=== PATIENT | female | born 1965 | race Caucasian/White ===

== ENCOUNTER 2016-02-25 13:23 | Emergency (ER) | payer OTHER ==
[2016-02-25 16:13] LABS: Hematocrit 47 % (35-47); Hemoglobin 15.8 g/dl (12.0-16.0); Mean Corpuscular HGB Conc 34 g/dl (31-36); Mean Corpuscular Hemoglobin 31 pg (27-31); Mean Corpuscular Volume 91 fL (80-97); Mean Platelet Volume 8 um3 (7.4-10.4); Red Blood Count 5.17 10^6/ul (4.0-5.4); Red Cell Distribution Width 13 % (10.5-15); White Blood Count 10.1 10^3/ul (3.5-10.8)
[2016-02-25 16:31] LABS: Albumin 4.3 g/dL (3.2-5.2); BUN/Creatinine Ratio 17.5 (8-20); Calcium 9.6 mg/dL (8.6-10.3); EGFR African American 143.2 (>60); EGFR Non-African American 111.4 (>60); Globulin 2.9 g/dL (2-4); Total Bilirubin 0.4 mg/dL (0.2-1.0); Total Protein 7.2 g/dL (6.4-8.9)
[2016-02-25 17:25] VITALS: BP 150/89
--- NOTE | 2016-02-25 21:35 | ED ---
Arcadio Ramos Erika, scribed for Terry Burk MD on 02/25/16 at 1549 . Lower Extremity - HPI Summary HPI Summary: Patient is a 50-year-old female presenting to the ED with a CC of right lower extremity pain starting a few days ago. She denies known trauma, and states she has seen no bruises. Pt reports that pain starts in the anterior right thigh and radiates down to the ankle. Pain is not aggravated by palpation. She denies recent fever, chest pain, SOB, vomiting, or other illness. Hx DDD, gestational diabetes. FHx cardiac disease. Pt reports she works for a [employer], and moves around at work. - History of Current Complaint Chief Complaint: EDSoftTissueLowExtr Stated Complaint: RT LEG PAIN Time Seen by Provider: 02/25/16 15:27 Hx Obtained From: Patient Hx Last Menstrual Period: partial hyster in past Onset/Duration: Still Present Severity Initially: Mild Severity Currently: Moderate Pain Intensity: 7 Pain Scale Used: 0-10 Numeric Timing: Constant Location: Is Discrete @ - RLE Associated Signs And Symptoms: Positive: Negative - Allergies/Home Medications Allergies/Adverse Reactions: Allergies Allergy/AdvReac Type Severity Reaction Status Date / Time Codeine Allergy Intermediate severe Verified 05/25/15 18:44 vomiting Hydrocodone Allergy Intermediate severe Verified 05/25/15 18:44 vomiting Acetaminophen Allergy severe Verified 05/25/15 18:44 [From Oxycodone vomiting W/Acetaminophen] Cephalexin [From Keflex] Allergy SEVERE Verified 05/25/15 18:44 VOMITING Oxycodone Allergy severe Verified 05/25/15 18:44 [From Oxycodone vomiting W/Acetaminophen] PAIN MEDS AdvReac Intermediate Vomiting Uncoded 05/25/15 18:44 PMH/Surg Hx/FS Hx/Imm Hx Endocrine/Hematology History: Denies: Hx Anticoagulant Therapy, Hx Bone Marrow Disease, Hx Diabetes, Hx Sickle Cell Disease, Hx Thyroid Disease, Hx Anemia Cardiovascular History: Reports: Hx Angina, Hx Coronary Artery Disease - in 6 months., Hx Hypertension Denies: Hx Cardiomegaly, Hx Congestive Heart Failure - h/o Hypertension,bp stable. ao longer taking htn med. to be e reevaluated, Hx Pacemaker/ICD, Hx Peripheral Vascular Disease, Hx Rheumatic Fever, Hx Valvular Heart Disease, Other Cardiovascular Problems/Disorders Respiratory History: Denies: Hx Asthma, Hx Chronic Obstructive Pulmonary Disease (COPD), Hx Pulmonary Edema, Hx Pulmonary Embolism, Hx Sleep Apnea, Other Respiratory Problems/Disorders - SMOKER, ON CHANTIX GI History: Denies: Hx Cirrhosis, Hx Crohn's Disease, Hx Gastroesophageal Reflux Disease , Hx Hiatal Hernia, Hx Irritable Bowel, Hx Jaundice, Hx Ulcer, Other GI Disorders History: Reports: Other Problems/Disorders - Pain from uterine fibroids Denies: Hx Kidney Infection, Hx Kidney Stones Musculoskeletal History: Reports: Other Musculoskeletal History - DDD Denies: Hx Arthritis, Hx Bursitis, Hx Tendonitis Sensory History: Reports: Hx Contacts or Glasses Denies: Hx Cataracts, Hx Glaucoma, Hx Hearing Aid Opthamlomology History: Reports: Hx Contacts or Glasses Denies: Hx Cataracts, Hx Glaucoma Neurological History: Denies: Hx Headaches, Hx Migraine, Hx Seizures, Other Neuro Impairments/ Disorders Psychiatric History: Reports: Hx Depression - diag. with depression. treatment Lexapro Denies: Hx Anxiety - Cancer History Hx Chemotherapy: No Hx Radiation Therapy: No - Surgical History Surgery Procedure, Year, and Place: partial HYSTERECTOMY 03/19/12; TUBAL LIGATION Hx Anesthesia Reactions: Yes - extremely cold after anesthesia - Immunization History Date of Tetanus Vaccine: UNK Date of Influenza Vaccine: None this year Infectious Disease History: Denies: Hx Clostridium Difficile, Hx Hepatitis, Hx Human Immunodeficiency Virus (HIV), Hx of Known/Suspected MRSA, Hx Shingles, Hx Tuberculosis, Traveled Outside the [place] in Last 30 Days - Family History Known Family History: Positive: Cardiac Disease - Social History Alcohol Use: None Hx Substance Use: No Substance Use Type: Reports: None Hx Tobacco Use: Yes Smoking Status (MU): Current Every Day Smoker Type: Cigarettes Amount Used/How Often: 1/2 ppd Have You Smoked in the Last Year: Yes Review of Systems Negative: Fever Negative: Chest Pain Negative: Shortness Of Breath Negative: Vomiting Positive: Myalgia - RLE pain Negative: Bruising All Other Systems Reviewed And Are Negative: Yes Physical Exam - Summary Physical Exam Summary: Constitutional: Comfortable, pleasant, alert HEENT: moist mucosa, MARISSA Neck: Soft, supple, no adenopathy, no edema Heart: S1, S2, HR 101 bpm, no murmurs, rubs, or gallops Lungs: clear, breathing comfortably, no wheezes, no rales Abdomen: Soft, flat, non-tender. Extremities: No edema, calves non-tender. RLE: No swelling, no redness, no ulcerations, no right inguinal adenopathy, femoral pulse 2+, popliteal pulse 2+ , DP pulse 2. No muscle tenderness or atrophy. Negative Pantera's. No calf tenderness. No pain with hip flexion or lateral abduction. Full ROM at the hip and knee. Strength intact. Negative straight leg raise. Spine: There is some lower spinal percussion tenderness Neurological: A&Ox3 Psychological: logical, coherent Triage Information Reviewed: Yes Vital Signs On Initial Exam: Initial Vitals Temp Pulse Resp BP Pulse Ox 98.2 F 113 18 180/130 99 02/25/16 14:07 02/25/16 14:07 02/25/16 14:07 02/25/16 14:07 02/25/16 14:07 Vital Signs Reviewed: Yes Diagnostics - Vital Signs Vital Signs Temp Pulse Resp BP Pulse Ox 02/25/16 14:07 98.2 F 113 18 180/130 99 - Laboratory Lab Results: Lab Results 02/25/16 02/25/16 02/25/16 Range/Units 16:06 16:06 16:06 WBC 10.1 (3.5-10.8) 10^3/ul RBC 5.17 (4.0-5.4) 10^6/ul Hgb 15.8 (12.0-16.0) g/dl Hct 47 (35-47) % MCV 91 (80-97) fL MCH 31 (27-31) pg MCHC 34 (31-36) g/dl RDW 13 (10.5-15) % Plt Count 232 (150-450) 10^3/ul MPV 8 (7.4-10.4) um3 Neut % (Auto) 62.7 (38-83) % Lymph % (Auto) 30.5 (25-47) % [place] % (Auto) 5.3 (1-9) % Eos % (Auto) 1.3 (0-6) % Baso % (Auto) 0.2 (0-2) % Absolute Neuts (auto) 6.4 (1.5-7.7) 10^3/ul Absolute Lymphs (auto) 3.1 (1.0-4.8) 10^3/ul Absolute Monos (auto) 0.5 (0-0.8) 10^3/ul Absolute Eos (auto) 0.1 (0-0.6) 10^3/ul Absolute Basos (auto) 0 (0-0.2) 10^3/ul Absolute Nucleated RBC 0.01 10^3/ul Nucleated RBC % 0.1 D-Dimer, Quantitative (Less Than 230) ng/mL Sodium 137 (133-145) mmol/L Potassium 4.0 (3.5-5.0) mmol/L Chloride 104 (101-111) mmol/L Carbon Dioxide 26 (22-32) mmol/L Anion Gap 7 (2-11) mmol/L BUN 10 (6-24) mg/dL Creatinine 0.57 (0.51-0.95) mg/dL Est GFR ( Amer) 143.2 (>60) Est GFR (Non-Af Amer) 111.4 (>60) BUN/Creatinine Ratio 17.5 (8-20) Glucose 103 H (70-100) mg/dL Lactic Acid 1.0 (0.5-2.0) mmol/L Calcium 9.6 (8.6-10.3) mg/dL Total Bilirubin 0.40 (0.2-1.0) mg/dL AST 17 (13-39) U/L ALT 18 (7-52) U/L Alkaline Phosphatase 102 (34-104) U/L Total Protein 7.2 (6.4-8.9) g/dL Albumin 4.3 (3.2-5.2) g/dL Globulin 2.9 (2-4) g/dL Albumin/Globulin Ratio 1.5 (1-3) 02/25/16 Range/Units 16:06 WBC (3.5-10.8) 10^3/ul RBC (4.0-5.4) 10^6/ul Hgb (12.0-16.0) g/dl Hct (35-47) % MCV (80-97) fL MCH (27-31) pg MCHC (31-36) g/dl RDW (10.5-15) % Plt Count (150-450) 10^3/ul MPV (7.4-10.4) um3 Neut % (Auto) (38-83) % Lymph % (Auto) (25-47) % [place] % (Auto) (1-9) % Eos % (Auto) (0-6) % Baso % (Auto) (0-2) % Absolute Neuts (auto) (1.5-7.7) 10^3/ul Absolute Lymphs (auto) (1.0-4.8) 10^3/ul Absolute Monos (auto) (0-0.8) 10^3/ul Absolute Eos (auto) (0-0.6) 10^3/ul Absolute Basos (auto) (0-0.2) 10^3/ul Absolute Nucleated RBC 10^3/ul Nucleated RBC % D-Dimer, Quantitative < 200 (Less Than 230) ng/mL Sodium (133-145) mmol/L Potassium (3.5-5.0) mmol/L Chloride (101-111) mmol/L Carbon Dioxide (22-32) mmol/L Anion Gap (2-11) mmol/L BUN (6-24) mg/dL Creatinine (0.51-0.95) mg/dL Est GFR ( Amer) (>60) Est GFR (Non-Af Amer) (>60) BUN/Creatinine Ratio (8-20) Glucose (70-100) mg/dL Lactic Acid (0.5-2.0) mmol/L Calcium (8.6-10.3) mg/dL Total Bilirubin (0.2-1.0) mg/dL AST (13-39) U/L ALT (7-52) U/L Alkaline Phosphatase (34-104) U/L Total Protein (6.4-8.9) g/dL Albumin (3.2-5.2) g/dL Globulin (2-4) g/dL Albumin/Globulin Ratio (1-3) Result Diagrams: 02/25/16 16:06 02/25/16 16:06 Lab Statement: Any lab studies that have been ordered have been reviewed, and results considered in the medical decision making process. Re-Evaluation - Re-Evaluation First Eval Re-Evaluation Time: 17:19 Comment: Discussed lab results and findings and discharge plan Lower Extremity Course/Dx - Course Assessment/Plan: She presents with right lateral thigh pain radiating down into the knee of unknown etiology. Her exam does not show anything concerning for DVT , vascular event, infection, severe strain, or significant neurological deficit. One possibility is it might be radiating down from her back, but I do not see any signs of disc herniation, radiculopathy, or cord compression. HR was elevated on arrival, but there are no Sx or signs or work up consistent with infection. I believe she is safe for discharge. - Diagnoses Differential Diagnosis/HQI/PQRI: Positive: Arthritis, Burn Localized, Bursitis, Cellulitis, Compartment Syndrome, Dislocation, Infection, Osteomyelitis, Phlebitis, Puncture Wound, Sciatica Provider Diagnoses: Right leg pain Discharge - Discharge Plan Condition: Good Disposition: HOME Patient Education Materials: Leg Pain (ED) Referrals: Deepti Jenkins MD [Primary Care Provider] - The documentation as recorded by the Arcadio marcus Erika accurately reflects the service I personally performed and the decisions made by me, Terry Burk MD.
== END 2016-02-25 17:25 | disposition home or self-care (01) ==
LOC: ED 13:23
DX: M79.604 Pain in right leg (principal); F17.210 Nicotine dependence, cigarettes, uncomplicated; Z88.6 Allergy status to analgesic agent; Z88.1 Allergy status to other antibiotic agents
CPT/HCPCS: 36415; 80053; 83605; 85025; 85379; 99282

== ENCOUNTER 2016-03-02 22:30 | Emergency (ER) | payer OTHER ==
[2016-03-03 00:17] VITALS: BP 153/103
[2016-03-03] MEDS ORDERED: Ketorolac INJ* 60 MG/2 ML VIAL IM ONE (00:38)
[2016-03-03] MEDS ORDERED: Orphenadrine Citrate IV* 30 MG/ML 2 ML VIAL IM ONE (00:38)
--- NOTE | 2016-03-03 02:16 | ED ---
Una Ramos Matthew, scribed for Valentin Morgan on 03/03/16 at 0059 . Lower Extremity - HPI Summary HPI Summary: A 50 y/o female presents to the ED with right leg pain since 2 weeks ago. She describes numbness in the right leg from her hip to her knee, and then pain from the knee to the ankle. The pain is rated 10/10 in severity. Associated symptoms include lower back pain. She denies any trauma. The patient was seen in the ED on 02/25/16 and the studies were inconclusive at that time. She then follow-up with her PCP who believes she may have a pinched nerve in the lower back. At that time, she was prescribed prednisone; but had a bad reaction to the medication and was advised to switch to Motrin. However, she states that she has not been having relief with Motrin. - History of Current Complaint Chief Complaint: EDExtremitJudeower Stated Complaint: LEG INJURY Time Seen by Provider: 03/03/16 00:22 Hx Obtained From: Patient Hx Last Menstrual Period: partial hyster in past Onset of Pain: Days Onset/Duration: Still Present Severity Initially: Moderate Severity Currently: Moderate Pain Intensity: 10 Pain Scale Used: 0-10 Numeric Timing: Constant Location: Is Discrete @ - right leg Associated Signs And Symptoms: Positive: Negative Alleviating Factor(s): Nothing Able to Bear Weight: Yes - Allergies/Home Medications Allergies/Adverse Reactions: Allergies Allergy/AdvReac Type Severity Reaction Status Date / Time Codeine Allergy Intermediate severe Verified 05/25/15 18:44 vomiting Hydrocodone Allergy Intermediate severe Verified 05/25/15 18:44 vomiting Acetaminophen Allergy severe Verified 05/25/15 18:44 [From Oxycodone vomiting W/Acetaminophen] Cephalexin [From Keflex] Allergy SEVERE Verified 05/25/15 18:44 VOMITING Oxycodone Allergy severe Verified 05/25/15 18:44 [From Oxycodone vomiting W/Acetaminophen] PAIN MEDS AdvReac Intermediate Vomiting Uncoded 05/25/15 18:44 PMH/Surg Hx/FS Hx/Imm Hx Endocrine/Hematology History: Denies: Hx Anticoagulant Therapy, Hx Bone Marrow Disease, Hx Diabetes, Hx Sickle Cell Disease, Hx Thyroid Disease, Hx Anemia Cardiovascular History: Reports: Hx Angina, Hx Coronary Artery Disease - in 6 months., Hx Hypertension Denies: Hx Cardiomegaly, Hx Congestive Heart Failure - h/o Hypertension,bp stable. ao longer taking htn med. to be e reevaluated, Hx Pacemaker/ICD, Hx Peripheral Vascular Disease, Hx Rheumatic Fever, Hx Valvular Heart Disease, Other Cardiovascular Problems/Disorders Respiratory History: Denies: Hx Asthma, Hx Chronic Obstructive Pulmonary Disease (COPD), Hx Pulmonary Edema, Hx Pulmonary Embolism, Hx Sleep Apnea, Other Respiratory Problems/Disorders - SMOKER, ON CHANTIX GI History: Denies: Hx Cirrhosis, Hx Crohn's Disease, Hx Gastroesophageal Reflux Disease , Hx Hiatal Hernia, Hx Irritable Bowel, Hx Jaundice, Hx Ulcer, Other GI Disorders History: Reports: Other Problems/Disorders - Pain from uterine fibroids Denies: Hx Kidney Infection, Hx Kidney Stones Musculoskeletal History: Reports: Other Musculoskeletal History - DDD Denies: Hx Arthritis, Hx Bursitis, Hx Tendonitis Sensory History: Reports: Hx Contacts or Glasses Denies: Hx Cataracts, Hx Glaucoma, Hx Hearing Aid Opthamlomology History: Reports: Hx Contacts or Glasses Denies: Hx Cataracts, Hx Glaucoma Neurological History: Denies: Hx Headaches, Hx Migraine, Hx Seizures, Other Neuro Impairments/ Disorders Psychiatric History: Reports: Hx Depression - diag. with depression. treatment Lexapro Denies: Hx Anxiety - Cancer History Hx Chemotherapy: No Hx Radiation Therapy: No - Surgical History Surgery Procedure, Year, and Place: partial HYSTERECTOMY 03/19/12; TUBAL LIGATION Hx Anesthesia Reactions: Yes - extremely cold after anesthesia - Immunization History Date of Tetanus Vaccine: UNK Date of Influenza Vaccine: None this year Infectious Disease History: No Infectious Disease History: Denies: Hx Clostridium Difficile, Hx Hepatitis, Hx Human Immunodeficiency Virus (HIV), Hx of Known/Suspected MRSA, Hx Shingles, Hx Tuberculosis, Traveled Outside the [place] in Last 30 Days - Family History Known Family History: Positive: Cardiac Disease - Social History Alcohol Use: None Hx Substance Use: No Substance Use Type: Reports: None Hx Tobacco Use: Yes Smoking Status (MU): Current Every Day Smoker Type: Cigarettes Amount Used/How Often: 1/2 ppd Have You Smoked in the Last Year: Yes Review of Systems Constitutional: Negative Eyes: Negative ENT: Negative Cardiovascular: Negative Respiratory: Negative Gastrointestinal: Negative Genitourinary: Negative Positive: Myalgia - right leg pain; lower back pain Skin: Negative Neurological: Negative Psychological: Normal All Other Systems Reviewed And Are Negative: Yes Physical Exam Triage Information Reviewed: Yes Vital Signs On Initial Exam: Initial Vitals Temp Pulse Resp BP Pulse Ox 97.6 F 115 20 174/100 100 03/02/16 22:31 03/02/16 22:31 03/02/16 22:31 03/02/16 22:31 03/02/16 22:31 Vital Signs Reviewed: Yes Appearance: Positive: Well-Appearing, No Pain Distress Skin: Positive: Warm, Skin Color Reflects Adequate Perfusion, Dry Head/Face: Positive: Normal Head/Face Inspection Eyes: Positive: EOMI, MARISSA ENT: Positive: Normal ENT inspection Neck: Positive: Supple, Nontender Respiratory/Lung Sounds: Positive: Clear to Auscultation, Breath Sounds Present Cardiovascular: Positive: Tachycardia Abdomen Description: Positive: Nontender, Soft Bowel Sounds: Positive: Present Musculoskeletal: Positive: Other - Tenderness over the right thigh and leg; No neurovascular deficits noted Neurological: Positive: Normal, Sensory/Motor Intact, Alert, Oriented to Person Place, Time Psychiatric: Positive: Normal, Affect/Mood Appropriate Diagnostics - Vital Signs Vital Signs Temp Pulse Resp BP Pulse Ox 03/03/16 00:16 153/103 03/02/16 23:53 97.8 F 101 18 97 03/02/16 22:31 97.6 F 115 20 174/100 100 - Laboratory Lab Statement: Any lab studies that have been ordered have been reviewed, and results considered in the medical decision making process. - Ultrasound No standard instances Ultrasound Interpretation: No Acute Changes - No DVT Ultrasound Interpretation Completed By: Radiologist Lower Extremity Course/Dx - Course Assessment/Plan: A 50 y/o female presents to the ED with right leg pain since 2 weeks ago. An US shows no DVT. In the ED course, the patient was supposed to be given Toradol and Norflex, but refused the medications. The patient then eloped from the ED. - Diagnoses Provider Diagnoses: Musculoskeletal pain of right lower extremity Discharge - Discharge Plan Condition: Stable Disposition: OTHER Discharge Disposition Comment: The patient eloped from the ED Referrals: Deepti Jenkins MD [Primary Care Provider] - The documentation as recorded by the Una marcus Matthew accurately reflects the service I personally performed and the decisions made by , Valentin Morgan.
--- NOTE | 2016-03-03 07:55 | RAD ---
HISTORY: DVT, leg pain COMPARISONS: None relevant TECHNIQUE: Multiple transverse and longitudinal ultrasound images were obtained of the right lower extremity from the level of the common femoral vein inferiorly through to the infrapopliteal veins using grayscale, color Doppler, and spectral Doppler imaging with and without compression and with augmentation. Comparison images were obtained of the contralateral common femoral vein. FINDINGS: VEINS: The venous system of the right lower extremity is compressible throughout its course, with normal flow on color Doppler imaging and normal response to augmentation on spectral Doppler imaging. SOFT TISSUES: Unremarkable. OTHER FINDINGS: None. IMPRESSION: NO RIGHT LOWER EXTREMITY DEEP VEIN THROMBOSIS
== END 2016-03-03 02:10 ==
LOC: ED 22:30
DX: M79.604 Pain in right leg (principal); F17.210 Nicotine dependence, cigarettes, uncomplicated; F32.9 Major depressive disorder, single episode, unspecified; Z88.5 Allergy status to narcotic agent
CPT/HCPCS: 96372; 99281; J1885; J2360

== ENCOUNTER 2016-11-13 16:09 | Emergency (ER) | payer OTHER ==
[2016-11-13 16:20] VITALS: BP 178/115
--- NOTE | 2016-11-13 19:40 | UC ---
Misti Ramos Abhishek, scribed for Joey Martinez MD on 11/13/16 at 1809 . Ear Complaint HPI - HPI Summary HPI Summary: This patient is a 51 year old F presenting to [facility] with a chief complaint of left ear pain since this morning. The CC is described as a throbbing pain in the left ear. Pt also states a tingling feeling in the right ear. The patient rates the pain 2/10 in severity. Symptoms aggravated by nothing. Symptoms alleviated by nothing. Patient reports ORTEGA, general malaise, bleeding from left ear this morning. Pt also states she has had rhinorrhea and a sore throat for a past few weeks and described associated symptoms as a "cold". Patient denies sinus pressure and trauma in ears. PMHx includes HTN. - History of Current Complaint Chief Complaint: UCEar Stated Complaint: EAR BLEEDING Time Seen by Provider: 11/13/16 17:53 Hx Obtained From: Patient Hx Last Menstrual Period: partial hyster in past Onset/Duration: Sudden Onset - This morning Severity Initially: Mild Severity Currently: Mild Pain Intensity: 2 Pain Scale Used: 0-10 Numeric Aggravating Factors: Nothing Alleviating Factors: Nothing Associated Signs/Symptoms: Positive: Discharge. Negative: Trauma to Ear - Allergies/Home Medications Allergies/Adverse Reactions: Allergies Allergy/AdvReac Type Severity Reaction Status Date / Time Codeine Allergy Intermediate severe Verified 11/13/16 16:16 vomiting Hydrocodone Allergy Intermediate severe Verified 11/13/16 16:16 vomiting Acetaminophen Allergy severe Verified 11/13/16 16:16 [From Oxycodone vomiting W/Acetaminophen] Cephalexin [From Keflex] Allergy SEVERE Verified 11/13/16 16:16 VOMITING Oxycodone Allergy severe Verified 11/13/16 16:16 [From Oxycodone vomiting W/Acetaminophen] PAIN MEDS AdvReac Intermediate Vomiting Uncoded 11/13/16 16:16 PMH/Surg Hx/FS Hx/Imm Hx - Additional Past Medical History Additional PMH: Denies: Diabetes, Thyroid Disease, Pacemaker/ICD, Congestive Heart Failure, COPD, Asthma, Bronchitis, Pulmonary Embolism, Ulcer, Kidney Stones, Seizures, Migraine, Breast Cancer, Anxiety Reports: Hypertension, Depression Cardiovascular History: Hypertension Other History Of: Negative For: Anticoagulant Therapy - Surgical History Surgical History: Yes Surgery Procedure, Year, and Place: partial HYSTERECTOMY 03/19/12; TUBAL LIGATION - Family History Known Family History: Positive: Cardiac Disease - Social History Alcohol Use: None Substance Use Type: None Smoking Status (MU): Current Every Day Smoker Type: Cigarettes Amount Used/How Often: 1/2 ppd Have You Smoked in the Last Year: Yes Household Exposure Type: Cigarettes Review of Systems Constitutional: Other - General malaise Skin: Negative Eyes: Negative ENT: Ear Ache - L ear pain, Other - bleeding from left ear since this morning, Rhinorrhea, and sore throat. Negative sinus pressure Respiratory: Negative Cardiovascular: Negative Gastrointestinal: Negative Genitourinary: Negative Motor: Negative Neurovascular: Negative Musculoskeletal: Negative Neurological: Headache, Other - "tingling" in the R ear Psychological: Negative All Other Systems Reviewed And Are Negative: Yes Physical Exam Triage Information Reviewed: Yes Vital Signs: Initial Vital Signs Temp 98 F 11/13/16 16:17 Pulse 102 11/13/16 16:17 Resp 18 11/13/16 16:17 BP 178/115 11/13/16 16:17 Pulse Ox 100 11/13/16 16:17 Vital Signs Reviewed: Yes Neck: Positive: 1 - Additional Comments General: Mild ill appearing Skin: warm, color reflects adequate perfusion, dry Head: normal Eyes: EOMI, MARISSA ENT: Left ear canal has blood in the deep end, TM appears intact Posterior pharynx normal Neck: supple, nontender Respiratory: CTA, breath sounds present Cardiovascular: RRR Abdomen: soft, nontender Bowel: present Musculoskeletal: normal, strength/ROM intact Neurological: normal, sensory/motor intact, A&O x3 Psychological: affect/mood appropriate Ear Complaint Course/Dx - Course Course Of Treatment: Pt medications reviewed. Allergies noted. Elevated BP noted. THERE WAS BLOOD IN THE LEFT EAR CANAL. NOT ALL OF THE TM WAS VISIBLE SO , TM RUPTURE POSSIBLE. WILL TREAT WITH ABX FOR C/O OM CAUSING TM RUPTURE. - Differential Dx/Diagnosis Provider Diagnoses: BLOOD IN LEFT EAR CANAL Discharge - Discharge Plan Condition: Stable Disposition: HOME Prescriptions: Amoxicillin/Clavulanate TAB* [Augmentin TAB 875*] 875 mg PO BID #20 tab Patient Education Materials: Otitis Media (ED) Referrals: Deepti Jenkins MD [Primary Care Provider] - Additional Instructions: FOLLOW UP WITH YOUR DOCTOR. GET RECHECKED FOR ANY WORSENING OF YOUR CONDITION OR QUESTIONS OR CONCERNS. The documentation as recorded by the scribe, Misti,Tomás accurately reflects the service I personally performed and the decisions made by me, Joey Martinez MD.
== END 2016-11-13 18:05 | disposition home or self-care (01) ==
LOC: UCEAST 16:09
DX: H92.22 Otorrhagia, left ear (principal); I10 Essential (primary) hypertension; F17.210 Nicotine dependence, cigarettes, uncomplicated; Z88.5 Allergy status to narcotic agent; Z88.6 Allergy status to analgesic agent; Z88.3 Allergy status to other anti-infective agents
CPT/HCPCS: 99212; G0463

== ENCOUNTER 2016-11-21 08:47 | Emergency (ER) | payer OTHER ==
[2016-11-21 08:56] VITALS: BP 181/100
[2016-11-21] MEDS ORDERED: GuaiFENesin DM* 5 ML UDC PO ONE (09:30)
[2016-11-21] MEDS ORDERED: Albuterol HFA INHALER* 8 gm MDI INH ONE (09:30)
--- NOTE | 2016-11-21 09:52 | ED ---
Shortness of Breath - HPI Summary HPI Summary: Patient is a 51yo smoker presenting to the ED with SOB x 2 days which has been worsening. She was seen a few days ago for bleeding in the left ear at [facility] and given amoxicillin for possible otitis media vs. externa. Bleeding has since resolved and denies any other abnormal drainge. She has been taking the medication for several days. She notes to chest congestion, cough and sore throat x 1 week. Denies production and states the cough is very dry and painful to swallow. Denies fevers or chills. Sweats intermittently. Denies significant health history. She takes BP medication as needed and monitors her BP at home. Denies sick contacts or travel. Denies chest pain, jaw pain or arm pain. Denies syncope, orthostasis or sputum production. Notes to wheezing , but this is often at her baseline. The SOB is slightly worse with exertion and better with rest. Flu vaccine is not UTD. Denies ORTEGA, dizziness or visual changes. Denies any allergy history. On arrival, her BP is 181/100 but otherwise VS are stable. - History of Current Complaint Chief Complaint: EDUpperRespComplaint Time Seen by Provider: 11/21/16 09:01 Hx Obtained From: Patient Onset/Duration: Sudden Onset Timing: Constant Current Severity: Moderate Dyspnea At: Exertion Associated Signs & Symptoms: Cough (Nonproductive), Chest Pain w/Cough Related History: Obesity - Risk Factors Pulmonary Embolism: Smoking Cardiac: Smoking Pseudomonas: Chronic Lung Disease - Allergy/Home Medications Allergies/Adverse Reactions: Allergies Allergy/AdvReac Type Severity Reaction Status Date / Time Codeine Allergy Intermediate severe Verified 11/13/16 16:16 vomiting Hydrocodone Allergy Intermediate severe Verified 11/13/16 16:16 vomiting Acetaminophen Allergy severe Verified 11/13/16 16:16 [From Oxycodone vomiting W/Acetaminophen] Cephalexin [From Keflex] Allergy SEVERE Verified 11/13/16 16:16 VOMITING Oxycodone Allergy severe Verified 11/13/16 16:16 [From Oxycodone vomiting W/Acetaminophen] PAIN MEDS AdvReac Intermediate Vomiting Uncoded 11/13/16 16:16 PMH/Surg Hx/FS Hx/Imm Hx Previously Healthy: Yes Endocrine/Hematology History: Denies: Hx Anticoagulant Therapy, Hx Bone Marrow Disease, Hx Diabetes, Hx Sickle Cell Disease, Hx Thyroid Disease, Hx Anemia Cardiovascular History: Reports: Hx Angina, Hx Coronary Artery Disease - in 6 months., Hx Hypertension - on medications Denies: Hx Cardiomegaly, Hx Congestive Heart Failure - h/o Hypertension,bp stable. ao longer taking htn med. to be e reevaluated, Hx Pacemaker/ICD, Hx Peripheral Vascular Disease, Hx Rheumatic Fever, Hx Valvular Heart Disease, Other Cardiovascular Problems/Disorders Respiratory History: Denies: Hx Asthma, Hx Chronic Obstructive Pulmonary Disease (COPD), Hx Pulmonary Edema, Hx Pulmonary Embolism, Hx Sleep Apnea, Other Respiratory Problems/Disorders - SMOKER, ON CHANTIX GI History: Denies: Hx Cirrhosis, Hx Crohn's Disease, Hx Gastroesophageal Reflux Disease , Hx Hiatal Hernia, Hx Irritable Bowel, Hx Jaundice, Hx Ulcer, Other GI Disorders History: Reports: Other Problems/Disorders - Pain from uterine fibroids Denies: Hx Kidney Infection, Hx Kidney Stones Musculoskeletal History: Reports: Other Musculoskeletal History - DDD Denies: Hx Arthritis, Hx Bursitis, Hx Tendonitis Sensory History: Reports: Hx Contacts or Glasses Denies: Hx Cataracts, Hx Glaucoma, Hx Hearing Aid Opthamlomology History: Reports: Hx Contacts or Glasses Denies: Hx Cataracts, Hx Glaucoma Neurological History: Denies: Hx Headaches, Hx Migraine, Hx Seizures, Other Neuro Impairments/ Disorders Psychiatric History: Reports: Hx Depression - diag. with depression. treatment Lexapro Denies: Hx Anxiety - Cancer History Hx Chemotherapy: No Hx Radiation Therapy: No - Surgical History Surgery Procedure, Year, and Place: partial HYSTERECTOMY 03/19/12; TUBAL LIGATION Hx Anesthesia Reactions: Yes - extremely cold after anesthesia - Immunization History Date of Tetanus Vaccine: UNK Date of Influenza Vaccine: None this year Infectious Disease History: No Infectious Disease History: Denies: Hx Clostridium Difficile, Hx Hepatitis, Hx Human Immunodeficiency Virus (HIV), Hx of Known/Suspected MRSA, Hx Shingles, Hx Tuberculosis, Hx Known/ Suspected VRE, Hx Known/Suspected VRSA, History Other Infectious Disease, Traveled Outside the [place] in Last 30 Days - Family History Known Family History: Positive: None, Cardiac Disease - Social History Occupation: Employed Full-time Lives: With Family Alcohol Use: None Hx Substance Use: No Substance Use Type: Reports: None Hx Tobacco Use: Yes Smoking Status (MU): Current Every Day Smoker Type: Cigarettes Amount Used/How Often: 1/2 ppd Have You Smoked in the Last Year: Yes Review of Systems Positive: Skin Diaphoresis. Negative: Fever, Chills, Fatigue Negative: Photophobia, Blurred Vision Positive: Sore Throat Negative: Palpitations, Chest Pain Positive: Shortness Of Breath, Cough Negative: Abdominal Pain, Vomiting, Diarrhea, Nausea Genitourinary: Negative Positive: no symptoms reported, see HPI Skin: Negative Negative: Headache, Weakness, Paresthesia Psychological: Normal All Other Systems Reviewed And Are Negative: Yes Physical Exam Triage Information Reviewed: Yes Vital Signs On Initial Exam: Initial Vitals Temp Pulse Resp BP Pulse Ox 96.9 F 98 20 181/100 100 11/21/16 08:48 11/21/16 08:48 11/21/16 08:48 11/21/16 08:48 11/21/16 08:48 Vital Signs Reviewed: Yes Appearance: Positive: Well-Nourished, Ill-Appearing Skin: Positive: Skin Color Reflects Adequate Perfusion, Dry Head/Face: Positive: Normal Head/Face Inspection Eyes: Positive: EOMI, MARISSA, Conjunctiva Clear Neck: Positive: Supple, No Lymphadenopathy Respiratory/Lung Sounds: Positive: Wheezes. Negative: Stridor, Tracheal Deviation, Unable to speak in full sentences, Fatigue Cardiovascular: Positive: RRR, Pulses are Symmetrical in both Upper and Lower Extremities Abdomen Description: Positive: Nontender, Soft Musculoskeletal: Positive: Normal, Strength/ROM Intact Neurological: Positive: Sensory/Motor Intact, Alert, Oriented to Person Place, Time, Facial Symmetry, Speech Normal Psychiatric: Positive: Normal AVPU Assessment: Alert - Byron Coma Scale Coma Scale Total: 15 Diagnostics - Vital Signs Vital Signs Temp Pulse Resp BP Pulse Ox 11/21/16 08:48 96.9 F 98 20 181/100 100 - Laboratory Lab Statement: Any lab studies that have been ordered have been reviewed, and results considered in the medical decision making process. Course/Dx - Course Course Of Treatment: During the course of treatment, chest xray shows no acute disease. Albuterol inhaler given. She is encouraged to discontinue the amoxicillin for no apparent infection in the TM or ear canal. Discussed URI and viral illness which could be worsening while on an antibiotic. Rhonchorous lung sounds bilaterally and wheezing bilaterally which could be her baseline d/ t significant smoking history. BP noted at 181/100 and upon recheck 168/90. She is to be taking her BP medication at home and has not done so in a few days. She is encouarged to check her BP everyday and take her medication upon discharge to which she agrees. Albuterol inhaler given by respiratory therapist. Prednisone and tessalon prescribed. This is likely a URI and will return if symptoms worsen. She will not need any anitbiotics at this time. - Diagnoses Provider Diagnoses: URI (upper respiratory infection) Discharge - Discharge Plan Condition: Stable Disposition: HOME Prescriptions: Albuterol HFA INHALER* [Ventolin HFA Inhaler*] 1 puff INH Q4H PRN #1 mdi PRN Reason: Sob/Wheezing Benzonatate CAP* [Tessalon CAP*] 100 mg PO TID #21 cap predniSONE TAB* [Deltasone TAB*] 50 mg PO DAILY #5 tab MDD 1 Patient Education Materials: Dyspnea (ED) Referrals: Deepti Jenkins MD [Primary Care Provider] - Additional Instructions: Follow up with PCP I have given you predisone - take this in the MORNING daily for 5 days Cough medication up to three times daily Albuterol inhaler as needed for shortness of breath symptoms If you develop any worsening symptoms, return to the ED immediately. I believe you have a upper respiratory infection and does not at this time need antibiotics, however if this becomes worse - please return Please take your BP medication today and again tomorrow. Recheck tomorrow morning of the BP.
--- NOTE | 2016-11-21 09:56 | RAD ---
INDICATION: Chest pain COMPARISON: January 28, 2012 TECHNIQUE: An AP portable view obtained at 0935 hours is submitted. FINDINGS: Bones/Soft Tissues: There are no acute bony findings. Cardiomediastinal: The cardiomediastinal silhouette is normal. Lungs: There are no infiltrates. Pleura: There are no pleural effusions. Other: None IMPRESSION: NO ACTIVE DISEASE.
== END 2016-11-21 11:10 | disposition home or self-care (01) ==
LOC: ED 08:47
DX: J06.9 Acute upper respiratory infection, unspecified (principal); R05 Cough; R07.9 Chest pain, unspecified; F17.210 Nicotine dependence, cigarettes, uncomplicated; R06.02 Shortness of breath
CPT/HCPCS: 71010; 94640; 99283; A9270-GY

== ENCOUNTER 2017-02-13 08:53 | Emergency (ER) | payer OTHER ==
--- OUTSIDE RECORDS SUMMARY | 2017-02-13 09:06 | XMS REPORT ---
:1965 External Reference #:[id number] Author Organization [facility] Address [address] [place] [address] Phone [phone] Care Team Providers Name Role Phone Deepti Jenkins M.D. 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 Primary Care Physician Unavailable Payers Type Date Identification Numbers Payment Provider Subscriber Medicaid Effective: Policy Number: [id number] [facility] Lillian Bernal 2010 PayID: [id number] [address] [address] [place] [address] Problems Date Description Provider Status Onset: 02/23/2009 Obesity Tan Tejada M.D. Active Onset: 02/23/2009 Mild recurrent major depression Tan Tejada M.D. Active Onset: 02/15/2012 Tobacco user Tan Tejada M.D. Active Onset: 02/15/2012 Essential hypertension Tan Tejada M.D. Active Onset: 03/09/2015 History of drug abuse Deepti Jenkins M.D. Active Onset: 05/05/2011 Acute pharyngitis Jeffrey Macias M.D. Resolved Resolved: 03/09/2015 Onset: 01/23/2012 Malaise and fatigue Tan Tejada M.D. Resolved Resolved: 03/09/2015 Onset: 01/23/2012 Disorder of uterus Tan Tejada M.D. Resolved Resolved: 03/09/2015 Onset: 02/23/2009 Drug dependence Tan Tejada M.D. Resolved Resolved: 03/09/2015 Family History Date Family Member(s) Problem(s) Comments Father Stroke Father Age 52 CVA Mother Multiple Sclerosis Mother Age 56 With Problems Assoc With MS First Sister Age 46 Ovarian Cancer Paternal Grandfather Age 40 CVA Paternal Grandmother At A Young Age, Cause Unknown To PT Maternal Grandfather Old Age In His 90s Maternal Grandmother TB Paternal Aunt Quad Bypass In 30s Social History Type Date Description Comments Education Highest level of education completed is 2 years of college Marital Status Patient is Living Situation Lives with daughter Sleep Reports normal sleep activity Pets There are no pets in the home Occupation does not work outside the cares for 3yo grand home daughter Cigarette Use Current Cigarette Smoker 1/2 trying to quit Pack Daily ETOH Use Social Alcohol Smoking Patient is a current smoker, 1/2 ppd smokes every day Daily Caffeine Consumes on average 5 cups of coffee per day Exercise Type/Frequency Does not exercise Current Allergies, Adverse Reactions, Alerts Date Description Reaction Status Severity Comments 02/10/2008 Vicodin active Vomitting 02/10/2008 Flexeril active Vomitting Medications Medication Date Status Form Strength Qnty SIG Indications Ordering Provider Amlodipine 11/29 Active Tablets 5mg 30tabs 1 by I10 mouth Porcupine, every M.D. day Prednisone 11/29 Active Tablets 20mg 14tabs 2 by R06.2 mouth [place], every M.D. day x 4 days then 1 by mouth every day x 4 days, 1/2 tab x 4 days; take with food Ventolin HFA 11/29 Active Aerosol 108(90Bas 18gm 2 puffs R06.2 e) every 4 Porcupine, mcg/Act hours as M.D. needed Chantix Starting 11/29 Active Tablets 0.5mg X 53tabs Use as 11 & Directed Gregory, 1 mg X 42 M.D. Elbow Strap Left 03/09 Active Misc use as M79.602 directed Gregory, seen M.D. 03/09/15, Left elbow tendonit is Claritin 00 Active Tablets 10mg 1 by Unknown /0000 mouth every day prn Naproxen 03/03 Hx Tablets 500mg 60tabs 1 po bid M54.16 w/ food Lex, - [employer] 11/29 Valium 03/03 Hx Tablets 5mg 14tabs 1 po at M54.16 hs Lex, - [employer] 11/29 Gabapentin 03/03 Hx Capsules 100mg 60caps 1-3 q 6 M54.16 prn pain Lex, - [employer] 11/29 Methylprednisolo 03/01 Hx TBPK 4mg 1Pack as M54.16 Sandi directed Issa, - , with Afnp-C 03/03 Cefuroxime 05/09 Hx Tablets 500mg 20tabs 1 by J01.90 Brenda Axetil /2015 mouth Lex, - twice a [employer] 03/01 day x days Butalbital/Aceta 05/09 Hx Capsules 50-300-40 30caps 1 by J01.90 Brenda minophen/Caffein mg mouth Lex, e - for [employer] 11/29 severe headche Amlodipine 03/09 Hx Tablets 10mg 30tabs 1 by I10 Deepti Besylate mouth Gregory, - every M.D. Omeprazole 02/17 Hx Capsules 40mg 90caps [address] lupe Tucker, - daily on [employer] 03/09 stomach, no other meds or food for 20-30 mins Amoxicillin/Clav 03/30 Hx Tablets 875-125mg 20tabs 1 by Ami hansen mouth Brown, CRAS Potassium - twice a 04/09 day x days Fexofenadine HCL 03/26 Hx Tablets 180mg 30tabs 1 by 381.19 mouth Carly, - every Afnp-C Fluticasone 03/26 Hx Suspension 50mcg/Act 1Bottle 2 sprays 381.19 Edanna each Carly, - nostril Afnp-C 02/16 day Valium 12/01 Hx Tablets 5mg 2tabs 1 po at hs Lex, - tonight [employer] 02/16 1 po hour prior to dental procedur e Naproxen 06/26 Hx Tablets 500mg 60tabs 1 po bid 922.31 w/ food Carly, - Afnp-C 02/16 Permethrin 08/20 Hx Lotion 1% 59ml apply to hair and Christian Tejada scalp M.DAlyssa 04/09 and repeat in 7 days Chantix Starter 02/14 Hx 1units starter 305.1 Maddox A. pack as Christian Tejada directed M.Crista 02/14 then two refills on regular dose Azithromycin 02/14 Hx Tablets 250mg 6tabs 2 po 465.9 Maddox A. today Mallory, - and 1 po M.D. 02/14 x 4 days Chantix 02/14 Hx Tablets 1mg 60tabs 1 po bid 305.1 Maddox A Christian Tejada.Crista 08/15 Amoxicillin 07/05 Hx Tablets 500mg 20tabs 1 po bid 462 Lex, - [employer] 01/22 Physical Therapy 06/27 Hx treatmen 724.2 Deanna Hallie, - evaluati Afdoyle-C 07/04 on lower back pain Amlodipine 05/04 Hx Tablets 5mg 30tabs Take 1 Jeffrey Diana Tablet Breimasara, - By Mouth M.D. 08/15 Every Day Amoxicillin/Clav 05/04 Hx Tablets 500-125mg 20tabs 1 po bid 465.9 Jeffrey Augusto coleanate Breimasara, Potassium - M.DlAyssa 06/27 Amoxicillin/Clav 12/20 Hx Tablets 500-125mg 20tabs 1 po bid 465.9 Tan hansene Ernie Tejada - M.DAlyssa 05/04 Sertraline HCL 12/20 Hx Tablets 50mg 30tabs 1 po qd 296.31 Tan AAlyssa Christian Tejada M.DAlyssa 05/04 Amlodipine 12/12 Hx Tablets 5mg 30tabs Take 1 Tan Poeylate Tablet Mallory, - By Mouth M.D. 05/04 Day Augmentin 01/31 Hx Tablets 875-125mg 20tabs 1 po bid Natalio T. Christian Masters M.D. 03/24 Naproxen 01/31 Hx Tablets 375mg 30tabs 1 po tid Natalio T. prn pain Guerrero, - M.D. 08/15 Gentamicin 12/28 Hx Solution 0.3% 1Bottle 1-2 gtts Natalio T. Sulfate qid Guerrero, - affected M.D. 01/31 eye until clear Skelaxin 03/22 Hx Tablets 800mg 30tabs 1 po tid Jeffrey J. Gilberto - Erich 12/07 Prior Auth # [id number] Naprosyn 03/22 Hx Tablets 500mg 20tabs 1 bid Jeffrey J. with Gilberto - food M.D. 08/24 Skelaxin 02/09 Hx Tablets 800mg Samples 1 PO Q 846.9 Brenda hs Lex, - [employer] 02/23 Ibuprofen 02/09 Hx Tablets 400mg 1 PO bid 846.9 Brenda With Lex - Meals [employer] 02/23 Vitamin D 00 Hx Tablets 1000Unit 60tabs 1 po bid Unknown /0000 for - vitamin 08/15 deficien cy Vitamin D 00 Hx Capsules [id number] 1 PO A Unknown (Ergocalciferol) /0000 Week - 12/28 Lexapro 00/00 Hx Tablets 20mg 90tabs 1 po qd Maddox A. /0000 Christian Tejada M.DAlyssa 12/13 Norvasc 00 Hx Tablets 5mg 90tabs 1 po qd Maddox A. /0000 Christian Tejada M.DAlyssa 12/12 Seroquel 00 Hx Tablets 50mg 1 po qhs Unknown /0000 - 08/24 Trazodone HCL 00 Hx Tablets 100mg 1 po qd Unknown /0000 - 11/22 Claritin 0000 Hx Tablets 10mg 30tabs 1 po qd Maddox A. /0000 Christian Tejada M.DAlyssa 08/15 Lexapro 00/00 Hx Tablets 20mg 30tabs Take 1 296.31 Maddox A. /0000 Tablet Mallory, - Every M.D. Lexapro 00/00 Hx Tablets 20mg 30tabs Take 1 Maddox A. /0000 Tablet Mallory, - Every M.D. Lexapro 00/00 Hx Tablets 20mg 1 po qd Unknown /0000 - 08/15 OTC Allergy Med Hx prn Unknown / - 03/26 Amlodipine Hx Tablets 2.5mg 2 po qd Unknown Besylate / - 03/09 Augmentin Hx Tablets 875-125mg 1 po bid Unknown / x 10 - days 06/26 Meclizine HCL Hx Tablets 25mg take 1 Unknown tablet - three 06/26 times day if needed for dizzines s Hydrocodone Hx Tablets 5-325mg 1 po q 4 Unknown Bitartrate/Aceta / hrs prn minophen - 06/26 Immunizations CPT Code Status Date Vaccine Lot # [id number] Given 04/10/2013 Tdap Tetanus, W Pertussis [id number] Vital Signs Date Vital Result Comment 11/29/2016 BP Systolic 140 mmHg BP Diastolic 110 mmHg Heart Rate 100 /min Body Temperature 98.2 F Respiratory Rate 18 /min Height 62 inches 5'2" Weight 198.00 lb BMI (Body Mass Index) 36.2 kg/m2 03/03/2016 BP Systolic 144 mmHg BP Diastolic 90 mmHg Heart Rate 88 /min Body Temperature 98.1 F Respiratory Rate 16 /min Height 62 inches 5'2" Weight 188.00 lb BMI (Body Mass Index) 34.4 kg/m2 03/01/2016 BP Systolic 146 mmHg BP Diastolic 90 mmHg Heart Rate 100 /min Body Temperature 98.4 F Respiratory Rate 16 /min Height 62 inches 5'2" Weight 188.00 lb BMI (Body Mass Index) 34.4 kg/m2 05/10/2015 BP Systolic 158 mmHg BP Diastolic 110 mmHg Heart Rate 100 /min Body Temperature 98.6 F Height 62 inches 5'2" Weight 204.25 lb BMI (Body Mass Index) 37.4 kg/m2 03/09/2015 BP Systolic 160 mmHg BP Diastolic 100 mmHg Heart Rate 92 /min Body Temperature 98.7 F Respiratory Rate 16 /min Height 62 inches 5'2" Weight 204.00 lb BMI (Body Mass Index) 37.3 kg/m2 02/17/2015 BP Systolic 186 mmHg BP Diastolic 110 mmHg Heart Rate 90 /min Body Temperature 98.1 F Height 61.75 inches 5'1.75" Weight 205.25 lb BMI (Body Mass Index) 37.8 kg/m2 03/26/2014 BP Systolic 110 mmHg BP Diastolic 80 mmHg Heart Rate 72 /min Body Temperature 98.4 F Respiratory Rate 16 /min Height 61.75 inches 5'1.75" Weight 200.00 lb BMI (Body Mass Index) 36.9 kg/m2 06/26/2013 BP Systolic 154 mmHg BP Diastolic 100 mmHg Heart Rate 76 /min Body Temperature 99.4 F Respiratory Rate 16 /min Height 61.75 inches 5'1.75" Weight 195.25 lb BMI (Body Mass Index) 36.0 kg/m2 05/12/2013 BP Systolic 132 mmHg BP Diastolic 72 mmHg Heart Rate 80 /min Body Temperature 98.3 F Respiratory Rate 14 /min Height 61.75 inches 5'1.75" Weight 198.00 lb BMI (Body Mass Index) 36.5 kg/m2 04/10/2013 BP Systolic 142 mmHg 120/84 right arm BP Diastolic 88 mmHg 120/84 right arm Heart Rate 78 /min Body Temperature 97.6 F Height 61.75 inches 5'1.75" Weight 196.12 lb BMI (Body Mass Index) 36.2 kg/m2 08/15/2012 BP Systolic 124 mmHg BP Diastolic 80 mmHg Heart Rate 84 /min Body Temperature 98.4 F Respiratory Rate 12 /min Height 62 inches 5'2" Weight 200.00 lb BMI (Body Mass Index) 36.6 kg/m2 02/15/2012 BP Systolic 120 mmHg BP Diastolic 80 mmHg Heart Rate 78 /min Body Temperature 97.9 F Height 62 inches 5'2" Weight 192.00 lb BMI (Body Mass Index) 35.1 kg/m2 01/23/2012 BP Systolic 120 mmHg BP Diastolic 80 mmHg Heart Rate 88 /min Body Temperature 99.8 F Respiratory Rate 16 /min Height 62 inches 5'2" Weight 200.00 lb BMI (Body Mass Index) 36.6 kg/m2 07/06/2011 Heart Rate 96 /min Body Temperature 99.7 F Height 62 inches 5'2" Weight 205.00 lb BMI (Body Mass Index) 37.5 kg/m2 06/28/2011 BP Systolic 110 mmHg BP Diastolic 80 mmHg Heart Rate 80 /min Body Temperature 99.0 F Height 62 inches 5'2" Weight 205.00 lb BMI (Body Mass Index) 37.5 kg/m2 05/05/2011 BP Systolic 130 mmHg BP Diastolic 80 mmHg Heart Rate 102 /min Body Temperature 98.8 F Height 62 inches 5'2" Weight 199.00 lb BMI (Body Mass Index) 36.4 kg/m2 12/20/2010 BP Systolic 140 mmHg BP Diastolic 90 mmHg Heart Rate 110 /min per pulse ox Body Temperature 99.1 F O2 % BldC Oximetry 98 % Height 62 inches 5'2" Weight 203.00 lb BMI (Body Mass Index) 37.1 kg/m2 11/22/2010 BP Systolic 120 mmHg BP Diastolic 80 mmHg Heart Rate 68 /min Body Temperature 99.0 F Height 62 inches 5'2" Weight 206.00 lb BMI (Body Mass Index) 37.7 kg/m2 01/31/2010 BP Systolic 110 mmHg BP Diastolic 74 mmHg Heart Rate 104 /min Body Temperature 99.0 F Respiratory Rate 16 /min O2 % BldC Oximetry 97 % Height 62 inches 5'2" Weight 205.00 lb BMI (Body Mass Index) 37.5 kg/m2 12/28/2009 BP Systolic 114 mmHg BP Diastolic 60 mmHg Heart Rate 84 /min Body Temperature 98.7 F Height 62 inches 5'2" Weight 202.00 lb BMI (Body Mass Index) 36.9 kg/m2 12/14/2009 BP Systolic 112 mmHg BP Diastolic 78 mmHg Heart Rate 96 /min Body Temperature 98.0 F Height 62 inches 5'2" Weight 206.00 lb BMI (Body Mass Index) 37.7 kg/m2 12/07/2009 BP Systolic 108 mmHg BP Diastolic 80 mmHg Heart Rate 90 /min Body Temperature 98.3 F Height 62 inches 5'2" Weight 205.00 lb BMI (Body Mass Index) 37.5 kg/m2 08/24/2009 BP Systolic 102 mmHg BP Diastolic 70 mmHg Heart Rate 88 /min Height 62 inches 5'2" Weight 200.00 lb BMI (Body Mass Index) 36.6 kg/m2 03/22/2009 BP Systolic 132 mmHg BP Diastolic 80 mmHg Heart Rate 80 /min Body Temperature 99.8 F Height 62 inches 5'2" Weight 197.00 lb BMI (Body Mass Index) 36.0 kg/m2 02/23/2009 BP Systolic 120 mmHg BP Diastolic 80 mmHg Body Temperature 96.0 F Height 62 inches 5'2" Weight 195.00 lb BMI (Body Mass Index) 35.7 kg/m2 02/10/2008 BP Systolic 100 mmHg BP Diastolic 70 mmHg Heart Rate 92 /min Body Temperature 98.6 F Height 62 inches 5'2" Weight 194.00 lb BMI (Body Mass Index) 35.5 kg/m2 Results Test Date Test Result H/L Range Note Ua - Micro (Fma) 01/16/2017 Appearance clear Color yellow Glucose, Urine (Fma/CMC/CTX) neg Bilirubin neg Ketones neg SP Grav 1.015 Blood trace-intact PH 6.0 Protein neg Urobil 0.2 Nitrite neg Leukocytes (Fma/CMC/Centrex) neg Hyaline - /Lpf Granular - /Lpf WBC (Fma,Centrex) 1-2 RBC 1-2 Mucus - /Lpf Epith few /Lpf Bacteria trace /Hpf Amorphous - /Lpf Crystals, Fluid (Fma/CMC/CTX) - Z#Comments - Laboratory test 01/16/2017 Hemoglobin A1c (Fma) 5.8 % High 4.1-5.7 finding Laboratory test 01/16/2017 Free T4 <pending&gt 0.75-1.54 finding ; TSH <pending> 0.5-5.0 CBC Auto Diff 02/25/2016 White Blood Count 10.1 10^3/uL 3.5-10.8 Red Blood Count 5.17 10^6/uL 4.0-5.4 Hemoglobin 15.8 g/dL 12.0-16.0 Hematocrit 47 % 35-47 Mean Corpuscular Volume 91 fL 80-97 Mean Corpuscular Hemoglobin 31 pg 27-31 Mean Corpuscular HGB Conc 34 g/dL 31-36 Red Cell Distribution Width 13 % 10.5-15 Platelet Count 232 10^3/uL 150-450 Mean Platelet Volume 8 um3 7.4-10.4 Abs Neutrophils 6.4 10^3/uL 1.5-7.7 Abs Lymphocytes 3.1 10^3/uL 1.0-4.8 Abs Monocytes 0.5 10^3/uL 0-0.8 Abs Eosinophils 0.1 10^3/uL 0-0.6 Abs Basophils 0 10^3/uL 0-0.2 Abs Nucleated RBC 0.01 10^3/uL Granulocyte % 62.7 % 38-83 Lymphocyte % 30.5 % 25-47 Monocyte % 5.3 % 1-9 Eosinophil % 1.3 % 0-6 Basophil % 0.2 % 0-2 Nucleated Red Blood Cells % 0.1 Comp Metabolic Panel 02/25/2016 Sodium 137 mmol/L 133-145 Potassium 4.0 mmol/L 3.5-5.0 Chloride 104 mmol/L 101-111 Co2 Carbon Dioxide 26 mmol/L 22-32 Anion Gap 7 mmol/L 2-11 Glucose 103 mg/dL High 70-100 Blood Urea Nitrogen 10 mg/dL 6-24 Creatinine 0.57 mg/dL 0.51-0.95 BUN/Creatinine Ratio 17.5 8-20 Calcium 9.6 mg/dL 8.6-10.3 Total Protein 7.2 g/dL 6.4-8.9 Albumin 4.3 g/dL 3.2-5.2 Globulin 2.9 g/dL 2-4 Albumin/Globulin Ratio 1.5 1-3 Total Bilirubin 0.40 mg/dL 0.2-1.0 Alkaline Phosphatase 102 U/L 34-104 Alt 18 U/L 7-52 Ast 17 U/L 13-39 Egfr Non- 111.4 >60 Egfr 143.2 >60 1 Laboratory test finding 02/25/2016 Lactic Acid 1.0 mmol/L 0.5-2.0 2 D Dimer Quantitative < 200 ng/mL Less Than 230 3 Laboratory test 05/25/2015 Culture Throat SEE RESULT BELOW 4, 5 finding Laboratory test 05/25/2015 Rapid Strep Negative Negative 6 finding Molecular Comp Metabolic Panel 05/25/2015 Sodium 138 mmol/L 133-145 Chloride 104 mmol/L 101-111 Co2 Carbon Dioxide 28 mmol/L 22-32 Glucose 122 mg/dL High 70-100 Blood Urea Nitrogen 11 mg/dL 6-24 Creatinine 0.58 mg/dL 0.51-0.95 BUN/Creatinine Ratio 19.0 8-20 Calcium 9.1 mg/dL 8.6-10.3 Total Protein 6.6 g/dL 6.4-8.9 Albumin 4.0 g/dL 3.2-5.2 Globulin 2.6 g/dL 2-4 Albumin/Globulin Ratio 1.5 1-3 Total Bilirubin 0.30 mg/dL 0.2-1.0 Alkaline Phosphatase 104 U/L 34-104 Alt 14 U/L 7-52 Egfr Non- 109.6 >60 Egfr 141.0 >60 7 Potassium TNP mmol/L 3.5-5.0 Anion Gap TNP mmol/L 2-11 Ast TNP U/L 13-39 Laboratory test finding 05/25/2015 Monospot Negative Negative CBC Auto Diff 05/25/2015 White Blood Count 8.8 10^3/uL 3.5-10.8 Red Blood Count 4.67 10^6/uL 4.0-5.4 Hemoglobin 14.1 g/dL 12.0-16.0 Hematocrit 42 % 35-47 Mean Corpuscular Volume 89 fL 80-97 Mean Corpuscular Hemoglobin 30 pg 27-31 Mean Corpuscular HGB Conc 34 g/dL 31-36 Red Cell Distribution Width 13 % 10.5-15 Platelet Count 262 10^3/uL 150-450 Mean Platelet Volume 9 um3 7.4-10.4 Abs Neutrophils 5.4 10^3/uL 1.5-7.7 Abs Lymphocytes 2.5 10^3/uL 1.0-4.8 Abs Monocytes 0.6 10^3/uL 0-0.8 Abs Eosinophils 0.2 10^3/uL 0-0.6 Abs Basophils 0.1 10^3/uL 0-0.2 Abs Nucleated RBC 0.03 10^3/uL Granulocyte % 62.0 % 38-83 Lymphocyte % 28.4 % 25-47 Monocyte % 7.0 % 1-9 Eosinophil % 1.8 % 0-6 Basophil % 0.8 % 0-2 Nucleated Red Blood Cells % 0.3 Laboratory test finding 05/04/2015 Surgical Interface SEE RESULT BELOW 8 Order Comprehensive Metabolic 03/09/2015 Sodium 135 mEq/L 134-149 Prof Potassium 4.5 mEq/L 3.6-5.5 Chloride 97 mEq/L 94-112 Carbon Dioxide 29 mEq/L 21-32 Glucose 110 mg/dL High 70-105 BUN 10 mg/dL 6-26 Creatinine 0.6 mg/dL 0.6-1.4 BUN/Creat Ratio 16.7 CALC 8.0-36.0 Calcium 9.1 mg/dL 8.6-10.2 Total Protein 7.1 g/dL 6.4-8.3 Albumin 4.4 g/dL 3.8-5.5 Globulin 2.7 g/dL 2.0-4.8 A/G Ratio 1.6 CALC 0.6-2.3 Alk. Phosphatase 94 U/L 30-110 Alt (SGPT) 15 U/L 7-35 Ast (Sgot) 18 U/L 5-34 Total Bilirubin 0.4 mg/dL 0.2-1.3 GFR Non- >60 ml/min/1.73m^ >=60 GFR >60 ml/min/1.73m^ >=60 Lipid Profile 03/09/2015 Cholesterol 231 mg/dL High 120-200 Triglycerides 165 mg/dL 30-200 HDL Cholesterol 64 mg/dL 30-85 LDL (Calculated) 134 CALC High 0-129 VLDL Cholesterol 33 mg/dL 0-50 HDL Risk Factor 3.6 CALC 0.0-4.4 Complete Blood Count 03/09/2015 WBC 9.7 x10^3/UL High 3.6-9.6 RBC 4.84 x10^6/UL 3.90-5.70 HGB 15.1 g/dL 12.1-17.2 HCT 45 % 36-50 MCV 92.0 fL 82.2-97.4 MCH 31.2 pg 27.6-33.3 MCHC 33.8 g/dL 33.0-35.5 RDW 13.2 % 11.6-13.7 PLT 229 x10^3/UL 150-400 MPV 7.7 fL 7.4-10.4 Gran # 7.6 x10^3/UL High 1.5-7.2 Lymph# 1.8 x10^3/UL 0.7-4.9 Bond# 0.3 x10^3/UL 0.1-0.9 Gran % 76.8 % High 42.2-75.2 Lymph % 19.3 % Low 20.5-51.1 Bond% 3.9 % 1.7-9.3 Ua - Micro (Fma) 06/26/2013 Appearance CLEAR Color YELLOW Glucose NEG Bilirubin NEG Ketones NEG SP Grav 1.015 Blood SMALL PH 6.0 Protein NEG Urobil 0.2 Nitrite NEG Leukocytes (Fma/CMC/Centrex) NEG Hyaline - /Lpf Granular - /Lpf WBC (Fma,Centrex) 3-5 RBC 3-5 Mucus - /Lpf Epith MODERATE /Lpf Bacteria TRACE /Hpf Amorphous - /Lpf Crystals, Fluid (Fma/CMC/CTX) - Z#Comments NOT CLEAN CATCH Comp Metabolic Panel 05/11/2013 Sodium 137 mmol/L 133-145 Potassium TNP mmol/L 3.7-5.6 9 Chloride 102 mmol/L 101-111 Co2 Carbon Dioxide 28 mmol/L 22-32 Anion Gap TNP mmol/L 2-11 Glucose 93 mg/dL 70-100 Blood Urea Nitrogen 9 mg/dL 6-24 Creatinine 0.53 mg/dL 0.51-0.95 BUN/Creatinine Ratio 17.0 8-20 Calcium 9.4 mg/dL 8.6-10.3 Total Protein 6.8 g/dL 6.4-8.9 Albumin 4.4 g/dL 3.2-5.2 Globulin 2.4 g/dL 2-4 Albumin/Globulin Ratio 1.8 1-3 Total Bilirubin 0.40 mg/dL 0.2-1.0 Alkaline Phosphatase 97 U/L 34-104 Alt 12 U/L 7-52 Ast TNP U/L 13-39 10 Egfr Non- 122.6 >60 Egfr 157.7 >60 11 CBC Auto Diff 05/11/2013 White Blood Count 10.5 10^3/uL 4.8-10.8 Red Blood Count 4.99 10^6/uL 4.0-5.4 Hemoglobin 15.2 g/dL 12.0-16.0 Hematocrit 44 % 35-47 Mean Corpuscular Volume 89 fL 80-97 Mean Corpuscular Hemoglobin 31 pg 27-31 Mean Corpuscular HGB Conc 34 g/dL 31-36 Red Cell Distribution Width 14 % 10.5-15 Platelet Count 281 10^3/uL 150-450 Mean Platelet Volume 8 um3 7.4-10.4 Abs Neutrophils 6.5 10^3/uL 1.5-7.7 Abs Lymphocytes 3.0 10^3/uL 1.0-4.8 Abs Monocytes 0.5 10^3/uL 0-0.8 Abs Eosinophils 0.2 10^3/uL 0-0.6 Abs Basophils 0.2 10^3/uL 0-0.2 Abs Nucleated RBC 0.01 10^3/uL Manual Differential 05/11/2013 Neutrophil % 66 % 38-83 Lymphocytes % 27 % 25-47 Monocytes % 4 % 0-13 Reactive Lymph % 3 % 0-6 RBC Morphology Normal Normal Laboratory test finding 05/11/2013 Erythrocyte Sed Rate 19 mm/Hr High 0- 14 Comprehensive Metabolic Prof 04/19/2013 Sodium 141 mEq/L 134-149 Potassium 4.3 mEq/L 3.6-5.5 Chloride 103 mEq/L 94-112 Carbon Dioxide 24 mEq/L 21-32 Glucose 102 mg/dL 70-105 BUN 11 mg/dL 6-26 Creatinine 0.6 mg/dL 0.6-1.4 BUN/Creat Ratio 18.3 CALC 8.0-36.0 Calcium 9.4 mg/dL 8.6-10.2 Total Protein 6.5 g/dL 6.3-8.1 Albumin 4.4 g/dL 3.8-5.5 Globulin 2.1 g/dL 2.0-4.8 A/G Ratio 2.1 CALC 0.6-2.3 Alk. Phosphatase 106 U/L 30-110 Alt (SGPT) 10 U/L 7-35 Ast (Sgot) 12 U/L 5-34 Total Bilirubin 0.2 mg/dL 0.2-1.3 Lipid Profile 04/19/2013 Cholesterol 216 mg/dL High 120-200 Triglycerides 114 mg/dL 30-200 HDL Cholesterol 45 mg/dL 30-85 LDL (Calculated) 148 CALC High 0-129 VLDL Cholesterol 23 mg/dL 0-50 HDL Risk Factor 4.8 CALC High 0.0-4.4 Ua - Non Micro (a) 04/19/2013 Appearance CLEAR Color YELLOW Glucose NEG Bilirubin NEG Ketones NEG SP Grav 1.025 Blood NEG PH 6.0 Protein NEG Urobil 0.2 Nitrite NEG Leukocytes ([facility]rex) NEG Comp Metabolic Panel 03/31/2012 Sodium 140 mmol/L 133-145 Potassium 3.9 mmol/L 3.5-5.0 Chloride 108 mmol/L 101-111 Co2 Carbon Dioxide 21.0 mmol/L Low 22-32 Anion Gap 11.0 mmol/L 2-11 Glucose 81 mg/dL 70-100 Blood Urea Nitrogen 8 mg/dL 6-24 Creatinine 0.50 mg/dL 0.50-1.40 BUN/Creatinine Ratio 16.0 8-20 Calcium 8.8 mg/dL 8.1-9.9 Total Protein 6.5 g/dL 6.2-8.1 Albumin 3.9 g/dL 3.6-5.4 Globulin 2.6 g/dL 2-4 Albumin/Globulin Ratio 1.5 1-3 Total Bilirubin 0.4 mg/dL 0.4-1.5 Alkaline Phosphatase 111 U/L High 30-110 Alt 22 U/L 14-54 Ast 18 U/L 12-42 Egfr Non- 131.7 >60 Egfr 169.4 >60 12 Laboratory test finding 03/31/2012 Lipase 123 U/L High 22-51 C Reactive Protein 0.8 mg/dL High Less than 0.5 Urinalysis 03/31/2012 Urine Color Yellow Urine Appearance Clear Urine Specific Naylor 1.013 1.010-1.030 Urine Esterase Negative Negative Urine Nitrate Negative Negative Urine Urobilinogen Negative E.U./dL Negative Urine Protein Negative mg/dL Negative Urine pH 7.0 5-9 Urine Blood Negative Negative Urine Ketones Negative mg/dL Negative Urine Bilirubin Negative Negative Urine Glucose Negative mg/dL Negative CBC Auto Diff 03/31/2012 White Blood Count 10.2 10^3/uL 4.8-10.8 Red Blood Count 5.21 10^6/uL 4.0-5.4 Hemoglobin 15.5 g/dL 12.0-16.0 Hematocrit 46 % 35-47 Mean Corpuscular Volume 89 fL 80-97 Mean Corpuscular Hemoglobin 30 pg 27-31 Mean Corpuscular HGB Conc 33 g/dL 31-36 Red Cell Distribution Width 14 % 10.5-15 Platelet Count 275 10^3/uL 150-450 Mean Platelet Volume 8 um3 7.4-10.4 Abs Neutrophils 6.0 10^3/uL 1.5-7.7 Abs Lymphocytes 3.3 10^3/uL 1.0-4.8 Abs Monocytes 0.6 10^3/uL 0-0.8 Abs Eosinophils 0.2 10^3/uL 0-0.6 Abs Basophils 0.2 10^3/uL 0-0.2 Abs Nucleated RBC 0 10^3/uL Granulocyte % 58.7 % 38-83 Lymphocyte % 32.0 % 25-47 Monocyte % 6.3 % 1-9 Eosinophil % 1.5 % 0-6 Basophil % 1.5 % 0-2 Nucleated Red Blood Cells % 0 Laboratory test finding 01/28/2012 Troponin I 0 ng/mL 0-0.06 13 CKMB 01/28/2012 CKMB ng/mL 0.3 ng/mL 0.3-4.0 14 Laboratory test finding 01/28/2012 Creatine Kinase 38 U/L 0-200 Laboratory test finding 01/28/2012 Rapid Influenza A B (SEE NOTE) 15 Antigen Urinalysis 01/28/2012 Urine Color Yellow Urine Appearance Clear Urine Specific Naylor 1.011 1.010-1.030 Urine Esterase Negative Negative Urine Nitrate Negative Negative Urine Urobilinogen Negative E.U./dL Negative Urine Protein Negative mg/dL Negative Urine pH 6.5 5-9 Urine Blood Trace Negative Urine Ketones Negative mg/dL Negative Urine Bilirubin Negative Negative 16 Urine Glucose Negative mg/dL Negative Urine Microscopic 01/28/2012 Urine WBC 1+ (<10 /hpf) None Seen Urine RBC 1+ (<3 /hpf) None Seen Urine Epithelial Cells 1+ Squamous /hpf None Seen Comp Metabolic Panel 01/28/2012 Sodium 136 mmol/L 133-145 Potassium 3.7 mmol/L 3.5-5.0 Chloride 108 mmol/L 101-111 Co2 Carbon Dioxide 25.0 mmol/L 22-32 Anion Gap 3.0 mmol/L 2-11 Glucose 118 mg/dL High 70-100 Blood Urea Nitrogen 4 mg/dL Low 6-24 Creatinine 0.60 mg/dL 0.50-1.40 BUN/Creatinine Ratio 6.7 Low 8-20 Calcium 8.5 mg/dL 8.1-9.9 Total Protein 6.4 g/dL 6.2-8.1 Albumin 3.7 g/dL 3.6-5.4 Globulin 2.7 g/dL 2-4 Albumin/Globulin Ratio 1.4 1-3 Total Bilirubin 0.6 mg/dL 0.4-1.5 Alkaline Phosphatase 85 U/L 30-110 Alt 14 U/L 14-54 Ast 19 U/L 12-42 Egfr Non- 106.7 >60 Egfr 137.2 >60 17 CBC Auto Diff 01/28/2012 White Blood Count 10.8 10^3/uL 4.8-10.8 Red Blood Count 4.76 10^6/uL 4.0-5.4 Hemoglobin 14.2 g/dL 12.0-16.0 Hematocrit 42 % 35-47 Mean Corpuscular Volume 88 fL 80-97 Mean Corpuscular Hemoglobin 30 pg 27-31 Mean Corpuscular HGB Conc 34 g/dL 31-36 Red Cell Distribution Width 13 % 10.5-15 Platelet Count 225 10^3/uL 150-450 Mean Platelet Volume 8 um3 7.4-10.4 Abs Neutrophils 9.6 10^3/uL High 1.5-7.7 Abs Lymphocytes 0.4 10^3/uL Low 1.0-4.8 Abs Monocytes 0.8 10^3/uL 0-0.8 Abs Eosinophils 0.1 10^3/uL 0-0.6 Abs Basophils 0 10^3/uL 0-0.2 Abs Nucleated RBC 0 10^3/uL Granulocyte % 88.6 % High 38-83 Lymphocyte % 3.6 % Low 25-47 Monocyte % 7.1 % 1-9 Eosinophil % 0.6 % 0-6 Basophil % 0.1 % 0-2 Nucleated Red Blood Cells % 0 Laboratory test finding 01/28/2012 Lactic Acid 2.1 mmol/L High 0.5-1.6 CBC Auto Diff 07/09/2011 White Blood Count 4.8 CUMM 4.8-10.8 Red Cell Count 4.76 CUMM 4.2-5.4 Hemoglobin 14.5 g/dL 12.0-16.0 Hematocrit 42 % 35-47 Mean Corpuscular Volume 87 um3 79-97 Mean Corpuscular Hemoglob 30 pg 27-31 Mean Corpuscular HGB Cone 35 g/dL 32-36 Redcell Distribution WDTH 14 % 10.5-15 Platelet Count 162 CUMM 150-450 Mean Platelet Volume 8.5 um3 7.4-10.4 Gran % 56.9 % 38-83 Lymph % 31.3 % 25-47 Mononuclear % 9.5 % High 1-9 Eosinophil % 1.6 % 0-6 Basophil % 0.7 % 0-2 Abs Lymphs 1.5 1.0-4.8 Abs Mononuclear 0.5 0-0.8 Absolute Neutrophil Count 2.7 1.5-7.7 Abs Eosinophils 0.1 0-0.6 Abs Basophils 0 0-0.2 Comp Metabolic Panel 07/09/2011 Sodium 138 mmol/L 135-145 Potassium 4.0 mmol/L 3.5-5.0 Chloride 106 mmol/L 101-111 Co2 (Carbon Dioxide) 26.0 mmol/L 22-32 Anion Gap 6.0 mmol/L 2-11 18 Glucose 95 mg/dL 70-100 BUN 9 mg/dL 6-24 Creatinine 0.4 mg/dL Low 0.50-1.40 One Over Creatinine 2.50 BUN/Creatinine Ratio 22.5 High 8-20 Calcium 8.7 mg/dL 8.1-9.9 Total Protein 7.0 GM/DL 6.2-8.1 Albumin 3.8 GM/DL 3.6-5.4 Globulin 3.2 GM/DL 2-4 Albumin/Globulin Ratio 1.2 1-3 Bilirubin Total 0.4 mg/dL 0.4-1.5 19 Alkaline Phosphatase 94 U/L 30-110 Alt (SGPT) 17 U/L 14-54 Ast (Sgot) 19 U/L 12-42 eGFR Non- 171.1 > 60 eGFR 220.0 > 60 20 Laboratory test 07/09/2011 C Reactive Protein 0.7 mg/dL High Less Than finding 0.5 Laboratory test 07/09/2011 Rapid Influenza A 21 finding B Antigen <SEE NOTE> Laboratory test 07/06/2011 Throat - Beta negative finding Strep Fma Rapid Strep A 05/04/2011 M 22 <SEE NOTE> Laboratory test 05/04/2011 Ictotest POSITIVE 23 finding CBC Auto Diff 05/04/2011 White Blood Count 14.1 CUMM High 4.8-10.8 Red Cell Count 4.71 CUMM 4.2-5.4 Hemoglobin 14.4 g/dL 12.0-16.0 Hematocrit 41 % 35-47 Mean Corpuscular Volume 88 um3 79-97 Mean Corpuscular Hemoglob 31 pg 27-31 Mean Corpuscular HGB Cone 35 g/dL 32-36 Redcell Distribution WDTH 14 % 10.5-15 Platelet Count 243 CUMM 150-450 Mean Platelet Volume 8.5 um3 7.4-10.4 24 Manual Differential 05/04/2011 Polysegmented Neutrophil 80 % 38-83 Lymphocyte 16 % Low 25-47 Monocyte 1 % 0-13 Eosinophil 1 % 0-6 Basophil 2 % 0-2 Absolute Neutrophil Count 11.2 RBC Morphology NORMAL Basic Metabolic Panel 05/04/2011 Sodium 138 mmol/L 135-145 Potassium 3.5 mmol/L 3.5-5.0 Chloride 105 mmol/L 101-111 Co2 (Carbon Dioxide) 24.0 mmol/L 22-32 Anion Gap 9.0 mmol/L 2-11 25 Glucose 121 mg/dL High 70-100 BUN 6 mg/dL 6-24 Creatinine 0.4 mg/dL Low 0.50-1.40 One Over Creatinine 2.50 BUN/Creatinine Ratio 15.0 8-20 Calcium 8.9 mg/dL 8.1-9.9 eGFR Non- 171.1 > 60 eGFR 220.0 > 60 26 Urinalysis 05/04/2011 Ua Color JONES Yellow Appearance-Urine CLEAR Clear Specific Naylor-Ur 1.020 1.010-1.030 Esterase-Urine NEGATIVE Negative Nitrite NEGATIVE Negative Stcnzrfwoknl-Ax-HJD NEGATIVE Negative Protein-Urine NEGATIVE Negative PH-Urine 5.5 5-9 Blood-Urine NEGATIVE Negative Ketones-Urine NEGATIVE Negative Bilirubin-Ur SEE ICTOTEST Negative Glucose-Urine NEGATIVE Negative Laboratory test 05/04/2011 C Reactive Protein 6.8 mg/dL High Less Than 0.5 finding Rapid Influenza A B 11/19/2010 Rapid Influenza A (SEE NOTE) 27 Antigen B Antigen Rapid Influenza A B Antigen NEGATIVE BY IMMU <SEE NOTE> 28 Comp Metabolic Panel 11/19/2010 Sodium 133 mmol/L Low 135-145 Potassium 4.5 mmol/L 3.5-5.0 Chloride 102 mmol/L 101-111 Co2 (Carbon Dioxide) 21.0 mmol/L Low 22-32 Anion Gap 10.0 mmol/L 2-11 29 Glucose 139 mg/dL High 70-100 BUN 7 mg/dL 6-24 Creatinine 0.5 mg/dL Low 0.50-1.40 One Over Creatinine 2.00 BUN/Creatinine Ratio 14.0 8-20 Calcium 9.0 mg/dL 8.1-9.9 Total Protein 6.5 GM/DL 6.2-8.1 Albumin 3.5 GM/DL Low 3.6-5.4 Globulin 3.0 GM/DL 2-4 Albumin/Globulin Ratio 1.2 1-3 Bilirubin Total 1.2 mg/dL 0.4-1.5 30 Alkaline Phosphatase 109 U/L 30-110 Alt (SGPT) 10 U/L Low 14-54 Ast (Sgot) 19 U/L 12-42 eGFR Non- 132.2 > 60 eGFR 170.1 > 60 31 Urine Drug SCR ED 11/19/2010 Amphetamines Urine NONE DETECTED None Detect & Pain Clinic Screen Barbituates Urine Screen NONE DETECTED None Detect Benzodiazepine Ur Screen NONE DETECTED None Detect Cannabinoid Urine Screen NONE DETECTED None Detect Cocaine Metabolites Urine NONE DETECTED None Detect Opiates Urine Screen NONE DETECTED None Detect PCP Urine Screen NONE DETECTED None Detect 32 Urinalysis 11/19/2010 Ua Color YELLOW Yellow Appearance-Urine CLEAR Clear Specific Naylor-Ur 1.019 1.010-1.030 Esterase-Urine NEGATIVE Negative Nitrite NEGATIVE Negative Lwalpboncqcr-Mf-PJB NEGATIVE Negative Protein-Urine NEGATIVE Negative PH-Urine 8.0 5-9 Blood-Urine NEGATIVE Negative Ketones-Urine NEGATIVE Negative Bilirubin-Ur NEGATIVE Negative Glucose-Urine NEGATIVE Negative CSF Culture 11/19/2010 CSF Culture NG4 33, 34 Sensitivity Sensitivity CSF Culture & 11/19/2010 CSF Smear SMEAR REVIEWED B 33, 35 Sensitivity <SEE NOTE> CSF Smear NO ORGANISMS SEE <SEE NOTE> 33, 36 Cell Count CSF 11/19/2010 CSF Appearance CLEAR/COLORLESS 37 CSF Volume 1 ML 37 CSFWBC 0 CUMM 37 CSF RBC 1 CUMM 37 Total Diff Cells Counted (SEE NOTE) 37, 38 CSF Comments (SEE NOTE) 37, 39 CSF Tube # TUBE #1 37 Laboratory test finding 11/19/2010 Glucose CSF 78 mg/dL High 50-75 37 Protein CSF 19.0 mg/dL 15-45 37 Anaerobic Culture Bottle 11/19/2010 Anaerobic Culture Bottle NG5 40 Blood Culture 11/19/2010 Aerobic Culture Bottle NG5 41 Manual Differential 11/19/2010 Polysegmented Neutrophil 73 % 38-83 Band Neutrophil 12 % High 0-8 Lymphocyte 8 % Low 25-47 Monocyte 7 % 0-13 Absolute Neutrophil Count 10.7 RBC Morphology NORMAL CBC Auto Diff 11/19/2010 White Blood Count 12.7 CUMM High 4.8-10.8 Red Cell Count 4.54 CUMM 4.2-5.4 Hemoglobin 13.6 g/dL 12.0-16.0 Hematocrit 40 % 35-47 Mean Corpuscular Volume 87 um3 79-97 Mean Corpuscular Hemoglob 30 pg 27-31 Mean Corpuscular HGB Cone 34 g/dL 32-36 Redcell Distribution WDTH 14 % 10.5-15 Platelet Count 217 CUMM 150-450 Mean Platelet Volume 8.3 um3 7.4-10.4 42 Laboratory test finding 12/07/2009 TSH (Thyrotropin) 0.880 uIU/ml 0.350- 5.500 43 CBC With Electronic Diff 11/23/2009 White Blood Count 9.1 CUMM 4.8-10.8 Red Cell Count 4.84 CUMM 4.2-5.4 Hemoglobin 14.8 g/dL 12.0-16.0 Hematocrit 43 % 35-47 Mean Corpuscular Volume 89 um3 79-97 Mean Corpuscular Hemoglob 31 pg 27-31 Mean Corpuscular HGB Cone 35 g/dL 32-36 Redcell Distribution WDTH 14 % 10.5-15 Platelet Count 247 CUMM 150-450 Mean Platelet Volume 7.3 um3 Low 7.4-10.4 Gran % 67.2 % 38-83 Lymph % 25.5 % 25-47 Mononuclear % 5.5 % 1-9 Eosinophil % 1.0 % 0-6 Basophil % 0.8 % 0-2 Abs Lymphs 2.3 1.0-4.8 Abs Mononuclear 0.5 0-0.8 Absolute Neutrophil Count 6.1 1.5-7.7 Abs Eosinophils 0.1 0-0.6 Abs Basophils 0.1 0-0.2 Comp Metabolic Panel 11/23/2009 Sodium 137 mmol/L 135-145 Potassium 4.3 mmol/L 3.5-5.0 Chloride 105 mmol/L 101-111 Co2 (Carbon Dioxide) 26.0 mmol/L 22-32 Anion Gap 6.0 mmol/L 2-11 44 Glucose 113 mg/dL High 70-100 45 BUN 5 mg/dL Low 6-24 Creatinine 0.60 mg/dL 0.50-1.40 One Over Creatinine 1.60 BUN/Creatinine Ratio 8.3 8-20 Calcium 9.5 mg/dL 8.1-9.9 Total Protein 6.4 GM/DL 6.2-8.1 Albumin 4.1 GM/DL 3.6-5.4 Globulin 2.3 GM/DL 2-4 Albumin/Globulin Ratio 1.8 1-3 Bilirubin Total 0.7 mg/dL 0.4-1.5 46 Alkaline Phosphatase 89 U/L 30-110 Alt (SGPT) 21 U/L 14-54 Ast (Sgot) 17 U/L 12-42 eGFR Non- 114.4 > 60 eGFR 138.4 > 60 47 Laboratory test finding 11/23/2009 Iron Total 94 g/dL 28-170 Ferritin 46 NG/ML 11.0-307 Vitamin B12 272 pg/mL 180-914 Folic Acid 7.3 NG/ML 2-16 Laboratory test 01/11/2009 [facility] [place] [place] Labs LIPIDS;VIT D,25 See Image Report finding Laboratory test 12/14/2008 [facility] Test CMP;CBC;UA See Image Report finding 1 Because ethnic data is not always readily available, this report includes an eGFR for both -Americans and non- Americans. The National Kidney Disease Education Program (NKDEP) does not endorse the use of the MDRD equation for patients that are not between the ages of 18 and 70, are , have extremes of body size, muscle mass, or nutritional status, or are non- or non-. According to the National Kidney Foundation, irrespective of diagnosis, the stage of the disease is based on the level of kidney function: Stage Description GFR(mL/min/1.73 m(2)) 1 Kidney damage with normal or decreased GFR 90 2 Kidney damage with mild decrease in GFR 60-89 3 Moderate decrease in GFR 30-59 4 Severe decrease in GFR 15-29 5 Kidney failure <15 (or dialysis) 2 [facility] Severe Sepsis and Septic Shock Management Bundle Measure requires all lactic acids initially measuring >2.0 mmol/L be repeated. 3 Please note: The following may produce a false positive D Dimer test: - Rheumatoid factor greater than 60 IU/ml - Plasma hemoglobin greater than 0.05 gm/dl - Bilirubin greater than 50 mg/dl - Lipids greater than 1000 mg/dl - FDP greater than 20 ug/ml 4 [id number] 5 SEE RESULT BELOW Name: LILLIAN BERNAL : [address]: Steffen Man MD Acct: [id number] Unit: [id number] AGE: 49 Location: [facility] Re05/25/15 SEX: F Status: DEP ER SPEC: [id number] SINDI: 05/25/15-[address]: Callie Man NP REQ: [id number] RECD: 05/26/15 STATUS: COMP OTHR DR: Deepti Man MD _ SOURCE: THROAT SPDESC: ORDERED: Throat Culture COMMENTS: [id number] Procedure Result Reported Site Throat Culture Final 04/22/16- 1122 ML Organism 1 NORMAL PREMA Quantity 3+ Throat cultures are clinically indicated to detect the presence of group A strep, arcanobacterium and yeast. In certain cases, predominating organisms will be reported. * ML - MAIN LAB ([facility]) . END OF REPORT * ML=Testing performed at Main Lab DEPARTMENT OF PATHOLOGY, [address] [place] [address] Joel Castillo M.D. Director [facility] # [id number] Community Recreation Programmer: [id number] AISSATOU ASCENCIO Due to the increased sensitivity of molecular testing, reflex cultures are no longer performed. 7 Because ethnic data is not always readily available, this report includes an eGFR for both -Americans and non- Americans. The National Kidney Disease Education Program (NKDEP) does not endorse the use of the MDRD equation for patients that are not between the ages of 18 and 70, are , have extremes of body size, muscle mass, or nutritional status, or are non- or non-. According to the National Kidney Foundation, irrespective of diagnosis, the stage of the disease is based on the level of kidney function: Stage Description GFR(mL/min/1.73 m(2)) 1 Kidney damage with normal or decreased GFR 90 2 Kidney damage with mild decrease in GFR 60-89 3 Moderate decrease in GFR 30-59 4 Severe decrease in GFR 15-29 5 Kidney failure <15 (or dialysis) 8 SEE RESULT BELOW Name: LILLIAN BERNAL : [address]: Justin Bishop MD Acct: [id number] Unit: [id number] AGE: 49 Location: [facility] Re05/04/15 SEX: F Status: REG REF SPEC: [id number] SINDI: 05/04/15-[address]: Justin Bishop MD REQ: [id number] RECD: 05/04/15 STATUS: MARIJA WOMACK DR: Deepti Jenkins MD _ ORDERED: LEVEL IV FINAL DIAGNOSIS Colon, at 45 cm, biopsy: -- Tubular adenoma. -- No high grade dysplasia or malignancy. CLINICAL HISTORY No history given POST-OPERATIVE DIAGNOSIS Colonoscopy to terminal ileum - polyp at 45 cm. biopsied, external hemorrhoids; 5-10 years GROSS DESCRIPTION The specimen is received in formalin labeled, Biopsy Colon Polyp at 45 cm, and consists of two parrish irregular soft tissue fragments measuring 0.2 x 0.2 x 0.1 cm and 1.0 x 0.2 x 0.1 cm, which are submitted entirely in one cassette. Signed (signature on file) Judith Gaitan MD 1236 END OF REPORT * ML=Testing performed at Main Lab DEPARTMENT OF PATHOLOGY, [address] [place] [address] Joel Castillo M.D. Director [facility] # [id number] 9 Unable to report test result due to hemolysis. 10 Unable to report test result due to hemolysis. 11 Because ethnic data is not always readily available, this report includes an eGFR for both -Americans and non- Americans. The National Kidney Disease Education Program (NKDEP) does not endorse the use of the MDRD equation for patients that are not between the ages of 18 and 70, are , have extremes of body size, muscle mass, or nutritional status, or are non- or non-. According to the National Kidney Foundation, irrespective of diagnosis, the stage of the disease is based on the level of kidney function: Stage Description GFR(mL/min/1.73 m(2)) 1 Kidney damage with normal or decreased GFR 90 2 Kidney damage with mild decrease in GFR 60-89 3 Moderate decrease in GFR 30-59 4 Severe decrease in GFR 15-29 5 Kidney failure <15 (or dialysis) 12 Because ethnic data is not always readily available, this report includes an eGFR for both -Americans and non- Americans. The National Kidney Disease Education Program (NKDEP) does not endorse the use of the MDRD equation for patients that are not between the ages of 18 and 70, are , have extremes of body size, muscle mass, or nutritional status, or are non- or non-. According to the National Kidney Foundation, irrespective of diagnosis, the stage of the disease is based on the level of kidney function: Stage Description GFR(mL/min/1.73 m(2)) 1 Kidney damage with normal or decreased GFR 90 2 Kidney damage with mild decrease in GFR 60-89 3 Moderate decrease in GFR 30-59 4 Severe decrease in GFR 15-29 5 Kidney failure <15 (or dialysis) 13 Reference Range and Interpretation: TnI (ng/ml) Interpretation Less Than 0.06 ng/mL Not supportive of diagnosis of AK 0.06 - 0.50 ng/ml Indeterminate: suggest serial studies if clinically indicated. Greater than 0.5 ng/mL Consistent with diagnosis of AK 14 CKMB interpretation should be made in conjunction with clinical symptoms, patient history and EKG changes. 15 RUN DATE: 01/28/12 [facility] LAB LIVE PAGE 1 RUN TIME: [address] [place], [place] [address] Specimen Inquiry Name: DOLORESLILLIAN : [address]: Lion Loyola MD Acct: [id number] Unit: [id number] AGE: 46 Location: ED Re01/28/12 SEX: F Status: REG ER SPEC: [id number] SINDI: 01/28/12-1535 [facility] DR: Lion Tipton MD REQ: [id number] RECD: 01/28/12-155 STATUS: TITO WOMACK DR: Mallory ARIAS,Tan Hansen _ SOURCE: NURIS [facility]: ORDERED: Rapid Flu A B Procedure Result Verified Site Rapid Influenza A B Antigen Final 01/28/12- 1649 ML Influenza A Antigen Negative by Enzyme Immunoassay Influenza B Antigen Negative by Enzyme Immunoassay Cell culture testing can be performed to confirm negative test results and to assist in detecting other viruses that can produce similar clinical symptoms. Please notify Microbiology Lab if further testing is desired. END OF REPORT * ML=Testing performed at Main Lab DEPARTMENT OF PATHOLOGY, [address] [place] [address] Jeol Castillo M.D. Director [facility] Permit #[id number] 16 Effective 01/03/12, bilirubin confirmation by ictotest is discontinued. False-positive results for bilirubin may occur due to color interference from large amounts of blood in the urine, very concentrated urine, or drugs that discolor urine such as phenazopyridine(Pyridium). 17 Because ethnic data is not always readily available, this report includes an eGFR for both -Americans and non- Americans. The National Kidney Disease Education Program (NKDEP) does not endorse the use of the MDRD equation for patients that are not between the ages of 18 and 70, are , have extremes of body size, muscle mass, or nutritional status, or are non- or non-. According to the National Kidney Foundation, irrespective of diagnosis, the stage of the disease is based on the level of kidney function: Stage Description GFR(mL/min/1.73 m(2)) 1 Kidney damage with normal or decreased GFR 90 2 Kidney damage with mild decrease in GFR 60-89 3 Moderate decrease in GFR 30-59 4 Severe decrease in GFR 15-29 5 Kidney failure <15 (or dialysis) 18 Anion gap measurement may be of limited value in the presence of any alkalosis, especially in a combined acid base disorder. . 19 A metabolite of Naproxen, O-desmethylnaproxen, has been shown to interfere with the Jendrassik-Jos[place] method for measuring total bilirubin. Samples from patients who have taken Naproxen have shown spurious elevation in total bilirubin levels. 20 Because ethnic data is not always readily available, this report includes an eGFR for both -Americans and non- Americans. The National Kidney Disease Education Program (NKDEP) does not endorse the use of the MDRD equation for patients that are not between the ages of 18 and 70, are , have extremes of body size, muscle mass, or nutritional status, or are non- or non-. According to the National Kidney Foundation, irrespective of diagnosis, the stage of the disease is based on the level of kidney function: Stage Description GFR(mL/min/1.73 m(2)) 1 Kidney damage with normal or decreased GFR 90 2 Kidney damage with mild decrease in GFR 60-89 3 Moderate decrease in GFR 30-59 4 Severe decrease in GFR 15-29 5 Kidney failure <15 (or dialysis) 21 RUN DATE: 07/09/11 [facility] NMI LIVE PAGE 1 RUN TIME: 1215 Specimen Inquiry RUN USER: INTERFACE Name: LILLIAN BERNAL Status: JOSE WARNER Re07/09/11 Age/Sex: 45/F Unit#: [id number] Location: : [birth year] SPEC #: [id number] SINDI: 07/09/11 STATUS: TITO REQ #: [id number] RECD: 07/09/11 [facility] DR: Jason ARIAS,Alejandro Fitzpatrick SOURCE: ANDREWSTANDISHSara ENTR: 07/09/[address] [facility] [address]: Mallory ARIAS,Tan Hansen [facility]: ORDERED: RAPID FLU A B Procedure Result Verified Site > RAPID INFLUENZA A B ANTIGEN Final -1214 ML INFLUENZA A VIRUS ANTIGEN NEGATIVE BY IMMUNOASSAY INFLUENZA B VIRUS ANTIGEN POSITIVE BY IMMUNOASSAY Cell culture testing can be performed to confirm negative test results and to assist in detecting other viruses that can produce similar clinical symptoms. Please notify Microbiology Lab if further testing is desired. [facility] Permit #[id number] [address] [place] [address] DEPARTMENT OF PATHOLOGY, [address] [place] [address] [facility] Permit #[id number] Erich Katz M.D. Software Implementation Specialist 22 RUN DATE: 05/05/11 [facility] NMI LIVE PAGE 1 RUN TIME: 836 Specimen Inquiry RUN USER: INTERFACE Name: LILLIAN BERNAL Status: CHASITY ER Re05/04/11 Age/Sex: 45/F Unit#: [id number] Location: : 61 SPEC #: [id number] SINDI: 05/04/11 STATUS: TITO REQ #: [id number] RECD: 05/04/[address]: Brad Lopez DO SOURCE: THROAT ENTR: 05/04/[address]: Tan Tejada MD SPDESC: ORDERED: RAPID STREP A, THROAT-BETA STR ACT WKST: BS 05/05/11 #1 Procedure Result Verified Site > RAPID STREP A Final -0329 ML RAPID STREP NEGATIVE FOR GROUP A STREP BY ENZYME IMMUNOASSAY The farm tractor mechanic and regulatory agencies both recommend that a throat culture for beta strep be performed if a Rapid Group A Strep assay yields a negative result. Therefore a culture will be automatically performed on all negative samples. > THROAT-BETA STREP CULTURE Final -0836 ML POSITIVE FOR PRESUMPTIVE GROUP A BETA HEMOLYTIC STREP BY BACITRACIN DISC - [facility] Permit #[id number] [address] [place] [address] DEPARTMENT OF PATHOLOGY, [address] [place] [id number] [facility] Permit #[id number] Joel Castillo M.D. Director Olayinka Chavez M.D. Software Implementation Specialist 23 ICTOTEST IS A QUALITATIVE CONFIRMATORY TEST FOR BILIRUBIN. 24 Lymphopenia % 25 Anion gap measurement may be of limited value in the presence of any alkalosis, especially in a combined acid base disorder. . 26 Because ethnic data is not always readily available, this report includes an eGFR for both -Americans and non- Americans. The National Kidney Disease Education Program (NKDEP) does not endorse the use of the MDRD equation for patients that are not between the ages of 18 and 70, are , have extremes of body size, muscle mass, or nutritional status, or are non- or non-. According to the National Kidney Foundation, irrespective of diagnosis, the stage of the disease is based on the level of kidney function: Stage Description GFR(mL/min/1.73 m(2)) 1 Kidney damage with normal or decreased GFR 90 2 Kidney damage with mild decrease in GFR 60-89 3 Moderate decrease in GFR 30-59 4 Severe decrease in GFR 15-29 5 Kidney failure <15 (or dialysis) 27 Cell culture testing can be performed to confirm negative test results and to assist in detecting other viruses that can produce similar clinical symptoms. Please notify Microbiology Lab if further testing is desired. 28 NEGATIVE BY IMMUNOASSAY NEGATIVE BY IMMUNOASSAY 29 Anion gap measurement may be of limited value in the presence of any alkalosis, especially in a combined acid base disorder. . 30 A metabolite of Naproxen, O-desmethylnaproxen, has been shown to interfere with the Jendrassik-[place] method for measuring total bilirubin. Samples from patients who have taken Naproxen have shown spurious elevation in total bilirubin levels. 31 Because ethnic data is not always readily available, this report includes an eGFR for both -Americans and non- Americans. The National Kidney Disease Education Program (NKDEP) does not endorse the use of the MDRD equation for patients that are not between the ages of 18 and 70, are , have extremes of body size, muscle mass, or nutritional status, or are non- or non-. According to the National Kidney Foundation, irrespective of diagnosis, the stage of the disease is based on the level of kidney function: Stage Description GFR(mL/min/1.73 m(2)) 1 Kidney damage with normal or decreased GFR 90 2 Kidney damage with mild decrease in GFR 60-89 3 Moderate decrease in GFR 30-59 4 Severe decrease in GFR 15-29 5 Kidney failure <15 (or dialysis) 32 THE URINE SPECIMEN WAS TESTED AT THE LISTED CUTOFFS: DRUG CLASS TEST LEVEL (NG/ML) AMPHETAMINES 300 BARBITUATES 200 BENZODIAZEPINE METABOLITES 200 COCAINE METABOLITES 300 CANNABINOIDS 25 OPIATES 200 PCP 25 THIS IS A SCREENING PROCEDURE. POSITIVE RESULTS ARE NOT CONFIRMED. SPECIMEN WAS RECEIVED WITHOUT CHAIN OF CUSTODY. RESULTS SHOULD BE USED FOR MEDICAL PURPOSES ONLY. . 33 Answer Y to Notify Infection Control if Meningitis Suspected Y 34 FINAL: NO GROWTH DAY 4 35 SMEAR REVIEWED BY RKP at 0752 on 11/20/10. 36 NO ORGANISMS SEEN BY CYTOSPIN SMEAR NONE 37 COMMENTS: TUBE 2 38 NO WBC'S OBSERVED IN CONCENTRATED SMEAR. 39 Slide and differential reviewed. No bacteria, blasts or other malignant cells seen. REVIEWED BY JOEL CASTILLO MD 40 NO GROWTH AFTER 5 DAYS 41 NO GROWTH AFTER 5 DAYS 42 Lymphopenia % 43 1SST 44 Anion gap measurement may be of limited value in the presence of any alkalosis, especially in a combined acid base disorder. . 45 Note change in reference range as of 09/26/07. The change was based on recommendations from the [place] [employer]. 46 A metabolite of Naproxen, O-desmethylnaproxen, has been shown to interfere with the Jendrassik-[place] method for measuring total bilirubin. Samples from patients who have taken Naproxen have shown spurious elevation in total bilirubin levels. 47 Because ethnic data is not always readily available, this report includes an eGFR for both -Americans and non- Americans. The National Kidney Disease Education Program (NKDEP) does not endorse the use of the MDRD equation for patients that are not between the ages of 18 and 70, are , have extremes of body size, muscle mass, or nutritional status, or are non- or non-. According to the National Kidney Foundation, irrespective of diagnosis, the stage of the disease is based on the level of kidney function: Stage Description GFR(mL/min/1.73 m(2)) 1 Kidney damage with normal or decreased GFR 90 2 Kidney damage with mild decrease in GFR 60-89 3 Moderate decrease in GFR 30-59 4 Severe decrease in GFR 15-29 5 Kidney failure <15 (or dialysis) Procedures Date CPT Code Description Status 05/04/2015 Colonoscopy Completed 04/02/2015 Mammogram Completed 02/17/2015 16046 Electrocardiogram Complete Completed 12/14/2011 Mammogram Completed 12/20/2010 95602 Pulse Oximetry Completed 01/31/2010 72273 Pulse Oximetry Completed 12/07/2009 39798 Electrocardiogram Complete Completed 08/25/2009 Mammogram Completed 06/16/1997 1 Balance Forward Completed Encounters Type Date Location Provider CPT E/M Dx Office Visit 11/29/2016 9:20a [facility] Deepti Jenkins M.D. 13638 I10 E66.9 Z71.6 F17.210 R06.2 R31.29 Office Visit 03/03/2016 11:30a Main Office TITUS Singh 43803 M54.16 Office Visit 03/01/2016 11:00a Main Office Preethi Bah-Bharathi 65707 M54.16 M79.604 Office Visit 05/10/2015 3:00p Main Office TITUS Singh 67893 J01.90 Office Visit 03/09/2015 10:00a Main Office Deepti Jenkins M.D. 56746 I10 F33.0 F19.21 Z12.31 Z12.11 Z00.00 M79.602 F17.210 Z71.6 Office Visit 03/03/2015 9:30a Main Office Deepti Jenkins M.D. 87211 I10 Office Visit 02/17/2015 3:45p [facility] Judith Tucker, [facility] 48411 R11.0 R12 M79.602 I10 F43.0 Office Visit 03/26/2014 4:00p Main Office [place]-C 96508 381.19 Office Visit 06/26/2013 1:15p Main Office Deanna Carroll Preethi-C 54495 922.31 E885.9 599.72 Office Visit 05/12/2013 9:45a Main Office Sandi Parsons, doyle-C 91518 782.2 Office Visit 04/10/2013 5:00p Main Office Tan Tejada M.D. 84389 V70.0 V77.91 V76.10 786.50 V06.5 599.72 Office Visit 08/15/2012 7:00p Main Office Tan Tejada M.D. 52678 401.9 296.31 621.9 304.93 709.9 Office Visit 02/15/2012 8:50a Main Office Tan Tejada M.D. 52338 465.9 305.1 621.9 296.31 401.9 304.93 Office Visit 01/23/2012 2:50p [facility] Tan Tejada M.D. 81831 780.79 621.9 Office Visit 07/06/2011 11:30a [facility] Brenda Burnett, [facility] 93168 462 Office Visit 06/28/2011 1:45p Main Office Deanna Carroll doyle-Bharathi 14489 724.2 Office Visit 05/05/2011 3:10p Main Office Jeffrey Macias M.D. 37285 462 Office Visit 12/20/2010 2:20p [facility] Tan Tejada M.D. 65305 465.9 296.31 Office Visit 11/22/2010 4:00p [facility] Sandi Parsons, doyle-C 34662 V67.59 784.0 Office Visit 01/31/2010 10:40a Main Office Natalio Masters M.D. 88618 465.9 466.0 Office Visit 12/28/2009 12:10p Main Office Natalio Masters M.D. 71716 372.30 Office Visit 12/14/2009 9:40a [facility] Tan Tejada M.D. 04964 780.2 785.1 780.59 401.9 305.1 Office Visit 12/07/2009 11:30a [facility] Tan Tejada M.D. 12218 780.2 Office Visit 08/24/2009 9:00a [facility] Tan Tejada M.D. 19661 780.59 401.9 278.00 296.31 304.93 477.9 Office Visit 03/22/2009 8:40a Main Office Jeffrey Macias M.D. 13078 723.1 Office Visit 02/23/2009 11:30a Main Office Tan Tejada M.D. 90710 304.93 401.9 269.2 278.00 296.31 Office Visit 02/10/2008 7:30p Main Office Brenda Burnett [facility] 17912 846.9 Plan of Care 11/29/2016 - Deepti Jenkins M.D.I10 Essential (primary) hypertensionNew Medication:Amlodipine Besylate 5 mgComments:The patient will continue to monitor blood pressure and let me know the blood pressure results if there are readings persistently above 140/80. Goal blood pressure is less than 140/80. Recommend low salt/cardiac diet and routine exercise. restart amlodipine at 5mg, consider going back to cardiologyas not seen in >2 yearsFollow up:1 month fasting labsE66.9 Obesity, unspecifiedComments:Counseled on heart healthy diet such as Mediterranean diet. Eat protein and vegetables first then carbohydrates last. Get at least 150 minutes of moderate aerobic activity or 75 minutes of vigorous aerobic activity a week, or a combination of moderate and vigorous activity. General goal of 30 minutes of physical activity a day.Z71.6 Tobacco abuse counselingComments:discussed options of Chantix patient would like to start, start after done with gshkjvrlC06.210 Nicotine dependence, cigarettes, vvygqnuyujceyS37.2 WheezingNew Medication:Prednisone 20 mgVentolin HFA 108(90 Base) mcg/ActComments:try prednisone taper, if not better in 2-3 days to add azithromycin, call if symptoms worsen or fever occurs; check temperature at home Supportive care discussed. Use tylenol or ibuprofen per directions as needed for pain and headache. Use saline rinse/mi pot twice a day for congestion. Can use mucinex 1 tab twice a day or 1 tab of Claritin or zyrtec at bedtime for congestion. Call if symptoms aren't improved or if they are worsening in the next few days.R31.29 Other microscopic hematuriaAllComments :~B_~U_Medication Management~b_~u_ Patient Understands medications she's taking ? Yes No Are there Barriers to Adherence? Yes No Has the patient been asked about herbal supplements and therapies, and OTC meds? Yes No
--- NOTE | 2017-02-13 11:00 | UC ---
Throat Pain/Nasal Ilia HPI - HPI Summary HPI Summary: Pt presents with a productive cough, sinus pain/pressure/congestion, and sore throat. She tells me that about 2 weeks ago she began with sinus pain/pressure/ congestion and a dry cough, but over the last 3-4 days she has developed left ear pain, a sore throat, and a productive cough in addition to her sinus symptoms. She has been taking OTC sudafed with mild relief. She does have an albuterol inhaler at home, but has not been using it. She denies fever, chills, SOB, chest pain, abdominal pain, n/v/d/c, body aches. She tells me an instance in the past where she had URI-like symptoms and was "given an antibiotic for a virus" and the antibiotic made her much more sick. She went to the ED for this and the provider told her that it was because she took an antibiotic for a virus. They gave her prednisone and she was much better. - History of Current Complaint Chief Complaint: UCRespiratory Stated Complaint: COUGH EARS PLUGGED CONGESTION Time Seen by Provider: 02/13/17 10:56 Hx Obtained From: Patient Hx Last Menstrual Period: partial hyster in past Onset/Duration: Gradual Onset Severity: Moderate Pain Intensity: 6 Pain Scale Used: 0-10 Numeric Cough: Productive - Allergies/Home Medications Allergies/Adverse Reactions: Allergies Allergy/AdvReac Type Severity Reaction Status Date / Time Codeine Allergy Intermediate severe Verified 02/13/17 09:03 vomiting Hydrocodone Allergy Intermediate severe Verified 02/13/17 09:03 vomiting Acetaminophen Allergy severe Verified 02/13/17 09:03 [From Oxycodone vomiting W/Acetaminophen] Cephalexin [From Keflex] Allergy SEVERE Verified 02/13/17 09:03 VOMITING Oxycodone Allergy severe Verified 02/13/17 09:03 [From Oxycodone vomiting W/Acetaminophen] PAIN MEDS AdvReac Intermediate Vomiting Uncoded 02/13/17 09:03 PMH/Surg Hx/FS Hx/Imm Hx Cardiovascular History: Hypertension Respiratory History: COPD, Asthma Other History Of: Negative For: Anticoagulant Therapy - Surgical History Surgical History: Yes Surgery Procedure, Year, and Place: partial HYSTERECTOMY 03/19/12; TUBAL LIGATION - Family History Known Family History: Positive: None, Cardiac Disease - Social History Lives: With Family Alcohol Use: None Substance Use Type: None Smoking Status (MU): Former Smoker Type: Cigarettes Amount Used/How Often: 1/2 ppd Have You Smoked in the Last Year: Yes Household Exposure Type: Cigarettes Review of Systems Constitutional: Negative Skin: Negative Eyes: Negative ENT: Sore Throat, Ear Ache, Nasal Discharge, Sinus Congestion, Sinus Pain/ Tenderness Respiratory: Cough Cardiovascular: Negative Gastrointestinal: Negative Neurovascular: Negative Psychological: Negative All Other Systems Reviewed And Are Negative: Yes Physical Exam Triage Information Reviewed: Yes Appearance: Well-Appearing, No Pain Distress, Well-Nourished Vital Signs: Initial Vital Signs Temp 97.2 F 02/13/17 09:03 Pulse 102 02/13/17 09:03 Resp 20 02/13/17 09:03 BP 150/103 02/13/17 09:03 Pulse Ox 100 02/13/17 09:03 Vital Signs Reviewed: Yes Eyes: Positive: Conjunctiva Clear. Negative: Conjunctiva Inflamed, Discharge ENT: Positive: Hearing grossly normal, Pharynx normal, Nasal congestion, Nasal drainage, TMs normal, Sinus tenderness, Uvula midline. Negative: Pharyngeal erythema, TM bulging, TM dull, TM red, Tonsillar swelling, Tonsillar exudate Neck: Positive: Supple, Nontender, No Lymphadenopathy Respiratory: Positive: Chest non-tender, Lungs clear, Normal breath sounds, No respiratory distress, No accessory muscle use Cardiovascular: Positive: RRR, No Murmur, Pulses Normal Neurological: Positive: Alert Psychological: Positive: Age Appropriate Behavior Skin: Negative: rashes Throat Pain/Nasal Course/Dx - Course Course Of Treatment: POC strep neg. CXR - IMPRESSION: No active cardiopulmonary disease is noted. Sinusitis. Bronchitis. Sore throat. Elevated BP - advised to stop taking sudafed and f/u with PCP. She has had codeine cough syrup in the past without difficulties. She tells me her documented "allergy" to codeine is nausea with vomiting at times and more of an "adversed reaction" - Differential Dx/Diagnosis Provider Diagnoses: Sinusitis. Bronchitis. Sore Throat Discharge - Discharge Plan Condition: Stable Disposition: HOME Prescriptions: Azithromycin TAB* [Zithromax TAB (Z-JAMES) 250 mg #6 tabs] 2 tab PO .TODAY, THEN 1 DAILY #1 james Guaifenesin-Codeine [Guaiatussin AC 100-10 mg/5Ml] 5 ml PO BEDTIME PRN #25 ml MDD 5mL PRN Reason: Cough predniSONE TAB* [Deltasone TAB*] 40 mg PO DAILY #10 tab Patient Education Materials: Sinusitis (ED), Acute Bronchitis (ED) Referrals: Deepti Jenkins MD [Primary Care Provider] - Additional Instructions: If you develop a fever, shortness of breath, chest pain, new or worsening symptoms - please call your PCP or go to the ED. Your blood pressure was high at todays visit. Please see your primary provider within 4 weeks for recheck and re-evaluation.
[2017-02-13 11:20] VITALS: BP 150/85
--- NOTE | 2017-02-13 11:58 | RAD ---
Indication: Cough. 2 views of the chest including dual energy PA views demonstrate no mediastinal shift. Heart is of normal size and configuration. Lung aranda demonstrate no pleural fluid, pneumonia or pneumothorax. When compared to previous exam of November 21, 2016 no significant change is noted. IMPRESSION: No active cardiopulmonary disease is noted.
== END 2017-02-13 12:28 | disposition home or self-care (01) ==
LOC: UCEAST 08:53
DX: J32.9 Chronic sinusitis, unspecified (principal); J40 Bronchitis, not specified as acute or chronic; J02.9 Acute pharyngitis, unspecified; Z87.891 Personal history of nicotine dependence
CPT/HCPCS: 71046; 87651; 99212; G0463

== ENCOUNTER 2017-02-14 14:58 | Emergency (ER) | payer OTHER ==
[2017-02-14 15:05] VITALS: BP 178/113
--- NOTE | 2017-02-14 15:20 | UC ---
Back Pain HPI - HPI Summary HPI Summary: sudden sharp burning pain in low back during a coughing episode 2 days ago--- has continued pain , people have told here she should be worried about kidney infection, pain fever, nausea, chills vomiting or urinary symptoms - History of Current Complaint Chief Complaint: UCBackPain Stated Complaint: back PAIN Time Seen by Provider: 02/14/17 15:07 Hx Obtained From: Patient Hx Last Menstrual Period: years ago ?: No Onset/Duration: Sudden Onset, Lasting Days - 2, Still Present Timing: Constant Severity Initially: Moderate Severity Currently: Moderate Back Pain: Is Discrete @ Character: Aching, Stiffness Aggravating Factor(s): Movement Alleviating Factor(s): Rest Associated Signs And Symptoms: Positive: Negative Related History: Previous Back Injury - Allergies/Home Medications Allergies/Adverse Reactions: Allergies Allergy/AdvReac Type Severity Reaction Status Date / Time Codeine Allergy Intermediate severe Verified 02/14/17 15:06 vomiting Hydrocodone Allergy Intermediate severe Verified 02/14/17 15:06 vomiting Acetaminophen Allergy severe Verified 02/14/17 15:06 [From Oxycodone vomiting W/Acetaminophen] Cephalexin [From Keflex] Allergy SEVERE Verified 02/14/17 15:06 VOMITING Oxycodone Allergy severe Verified 02/14/17 15:06 [From Oxycodone vomiting W/Acetaminophen] PAIN MEDS AdvReac Intermediate Vomiting Uncoded 02/14/17 15:06 PMH/Surg Hx/FS Hx/Imm Hx Previously Healthy: No Cardiovascular History: Hypertension Other History Of: Negative For: Anticoagulant Therapy - Surgical History Surgical History: Yes Surgery Procedure, Year, and Place: partial HYSTERECTOMY 03/19/12; TUBAL LIGATION - Family History Known Family History: Positive: None, Cardiac Disease - Social History Occupation: Unemployed Lives: With Family Alcohol Use: Occasionally Substance Use Type: None Smoking Status (MU): Former Smoker Type: Cigarettes Amount Used/How Often: 1/2 ppd Have You Smoked in the Last Year: Yes Household Exposure Type: Cigarettes Cessation Counseling: Patient Advised to Stop Review of Systems Constitutional: Negative Skin: Negative Eyes: Negative ENT: Negative Respiratory: Negative Cardiovascular: Negative Gastrointestinal: Negative Genitourinary: Negative Motor: Negative Neurovascular: Negative Musculoskeletal: Arthralgia - low back, Myalgia - lo back Neurological: Negative Psychological: Negative Is Patient Immunocompromised?: No All Other Systems Reviewed And Are Negative: Yes Physical Exam Triage Information Reviewed: Yes Appearance: Well-Appearing, Well-Nourished, Obese Vital Signs: Initial Vital Signs Temp 96.4 F 02/14/17 14:59 Pulse 119 02/14/17 14:59 Resp 16 02/14/17 14:59 BP 178/113 02/14/17 14:59 Pulse Ox 100 02/14/17 14:59 Vital Signs Reviewed: Yes Eye Exam: Normal Eyes: Positive: Conjunctiva Clear ENT Exam: Normal ENT: Positive: Normal ENT inspection, Hearing grossly normal. Negative: Nasal congestion, Tonsillar swelling, Tonsillar exudate, Trismus, Muffled voice, Hoarse voice, Dental tenderness Dental Exam: Normal Neck exam: Normal Neck: Positive: Supple, Nontender, No Lymphadenopathy Respiratory Exam: Normal Respiratory: Positive: Chest non-tender, Lungs clear, Normal breath sounds, No respiratory distress, No accessory muscle use Cardiovascular Exam: Normal Cardiovascular: Positive: RRR, No Murmur, Pulses Normal, Brisk Capillary Refill Abdominal Exam: Normal Abdomen Description: Positive: Nontender, No Organomegaly, Soft. Negative: CVA Tenderness (R), CVA Tenderness (L) Musculoskeletal Exam: Normal Musculoskeletal: Positive: Strength Intact, No Edema, ROM Limited @ - low back Neurological Exam: Normal Neurological: Positive: Alert, Muscle Tone Normal Psychological Exam: Normal Skin Exam: Normal Diagnostics - Laboratory Diagnostic Studies Completed/Ordered: ua-trace protien and blood (has been in documented urines from 2011) Back Pain Course/Dx - Course Course Of Treatment: home rest, flexeril, tylenol ibuprofen gentle stretching, follow blood pressure and hematuria with pcp - Differential Dx/Diagnosis Provider Diagnoses: Hypertension in poor control, hematuria, acute exacerbation of chronic low back pain Discharge - Discharge Plan Condition: Stable Disposition: HOME Prescriptions: Cyclobenzaprine TAB* [Flexeril 10 MG TAB*] 10 mg PO TID PRN #20 tab PRN Reason: muscle pain Patient Education Materials: Acetaminophen (By mouth), Muscle Strain (ED), Hematuria (ED), Hypertension (ED), Core Strengthening Exercises (GEN), Lower Back Exercises (ED) Referrals: Deepti Jenkins MD [Primary Care Provider] - 1 Week
== END 2017-02-14 15:35 | disposition home or self-care (01) ==
LOC: UCEAST 14:58
DX: M54.5 Low back pain (principal); G89.29 Other chronic pain; I10 Essential (primary) hypertension; R31.9 Hematuria, unspecified; Z88.3 Allergy status to other anti-infective agents; Z88.5 Allergy status to narcotic agent; Z87.891 Personal history of nicotine dependence
CPT/HCPCS: 81003; 99212; G0463

== ENCOUNTER 2018-01-24 13:07 | Emergency (ER) | payer OTHER ==
[2018-01-24] MEDS ORDERED: hydrALAZINE IV* 20 MG/ML VIAL IV SLOW PU ONE (13:40)
--- NOTE | 2018-01-24 13:42 | ED ---
Neurological HPI - HPI Summary HPI Summary: A 52 y/o female presents to the ED c/o dizziness. In the ED room, the patient has a pulse of 102 BPM, O2 saturation of 97%, and blood pressure of 185/120. Currently, the patient is still experiencing dizziness reaching 5/10 in severity. According to the patient, she woke up this AM really dizzy. She stated that she tried to work through it but it kept becoming worse. She stated that she felt like the room was spinning and also had nausea. She also experiences pain between her shoulder blades and weakness. She denied any SOB and CP, but stated that it is not a pain, but more of a chest pressure that is radiating to her back. She has a hard time keeping her balance and has almost fallen a few times. She denies any abdominal pain or numbness. She stated when she moves her body or head in general she feels dizzy. Patient also feels hot and flushed. Patient does take BP medications and did take her dosage earlier today. No ETOH or smoking. Last stress test (has had multiple) about a year ago with Dr. Clark. - History of Current Complaint Chief Complaint: EDDizziness Stated Complaint: DIZZY FEVERISH Time Seen by Provider: 01/24/18 13:31 Hx Obtained From: Patient Hx Last Menstrual Period: years ago Onset/Duration: Sudden Onset, Started hours ago, Still Present, Worse Since Timing: Constant Onset Severity: Moderate Current Severity: Moderate Number of Seizures: 0 Pain Intensity: 5 Pain Scale Used: 0-10 Numeric Character: Room Spinning, Weak, Dizzy Syncope Timin Number of Episodes: 0 Aggravating: Position Change/Supine to Erect, Change in Head Position Alleviating: Nothing Associated Signs and Symptoms: Positive: Weakness, Dizziness, Pain - between shoulder blades, Nausea/Vomiting - nausea. Negative: Numbness, Fever, Chest Pain, Shortness of Breath - Allergy/Home Medications Allergies/Adverse Reactions: Allergies Allergy/AdvReac Type Severity Reaction Status Date / Time MS Codeine [Codeine] Allergy Intermediate severe Verified 01/24/18 13:16 vomiting MS Hydrocodone [Hydrocodone] Allergy Intermediate severe Verified 01/24/18 13:16 vomiting MS Acetaminophen Allergy severe Verified 01/24/18 13:16 [From Oxycodone vomiting W/Acetaminophen] MS Cephalexin [From Keflex] Allergy SEVERE Verified 01/24/18 13:16 VOMITING MS Oxycodone Allergy severe Verified 01/24/18 13:16 [From Oxycodone vomiting W/Acetaminophen] PAIN MEDS AdvReac Intermediate Vomiting Uncoded 01/24/18 13:16 PMH/Surg Hx/FS Hx/Imm Hx Endocrine/Hematology History: Denies: Hx Anticoagulant Therapy, Hx Bone Marrow Disease, Hx Diabetes, Hx Sickle Cell Disease, Hx Thyroid Disease, Hx Anemia Cardiovascular History: Reports: Hx Angina, Hx Coronary Artery Disease - in 6 months., Hx Hypertension - on medications Denies: Hx Cardiomegaly, Hx Congestive Heart Failure - h/o Hypertension,bp stable. ao longer taking htn med. to be e reevaluated, Hx Pacemaker/ICD, Hx Peripheral Vascular Disease, Hx Rheumatic Fever, Hx Valvular Heart Disease, Other Cardiovascular Problems/Disorders Respiratory History: Denies: Hx Asthma, Hx Chronic Obstructive Pulmonary Disease (COPD), Hx Pulmonary Edema, Hx Pulmonary Embolism, Hx Sleep Apnea, Other Respiratory Problems/Disorders - SMOKER, ON CHANTIX GI History: Denies: Hx Cirrhosis, Hx Crohn's Disease, Hx Gastroesophageal Reflux Disease , Hx Hiatal Hernia, Hx Irritable Bowel, Hx Jaundice, Hx Ulcer, Other GI Disorders History: Reports: Other Problems/Disorders - Pain from uterine fibroids Denies: Hx Kidney Infection, Hx Kidney Stones Musculoskeletal History: Reports: Other Musculoskeletal History - DDD Denies: Hx Arthritis, Hx Bursitis, Hx Tendonitis Sensory History: Reports: Hx Contacts or Glasses Denies: Hx Cataracts, Hx Glaucoma, Hx Hearing Aid Opthamlomology History: Reports: Hx Contacts or Glasses Denies: Hx Cataracts, Hx Glaucoma Neurological History: Denies: Hx Headaches, Hx Migraine, Hx Seizures, Other Neuro Impairments/ Disorders Psychiatric History: Reports: Hx Depression - diag. with depression. treatment Lexapro Denies: Hx Anxiety, Hx Panic Disorder - Cancer History Hx Chemotherapy: No Hx Radiation Therapy: No - Surgical History Surgery Procedure, Year, and Place: partial HYSTERECTOMY 03/19/12; TUBAL LIGATION. HERNIA REPAIR Hx Anesthesia Reactions: Yes - extremely cold after anesthesia - Immunization History Date of Tetanus Vaccine: UNK Date of Influenza Vaccine: None this year Infectious Disease History: No Infectious Disease History: Denies: Hx Clostridium Difficile, Hx Hepatitis, Hx Human Immunodeficiency Virus (HIV), Hx of Known/Suspected MRSA, Hx Shingles, Hx Tuberculosis, Hx Known/ Suspected VRE, Hx Known/Suspected VRSA, History Other Infectious Disease, Traveled Outside the [place] in Last 30 Days - Family History Known Family History: Positive: Cardiac Disease - Social History Alcohol Use: Occasionally Hx Substance Use: No Substance Use Type: Reports: None Hx Tobacco Use: Yes Smoking Status (MU): Former Smoker Type: Cigarettes Amount Used/How Often: 1/2 ppd Have You Smoked in the Last Year: Yes Review of Systems Positive: Other - POSITIVE: FEELS HOT AND FLUSHED. Negative: Fever Positive: Other - POSITIVE: CHEST PRESSURE. Negative: Chest Pain Negative: Shortness Of Breath Positive: Nausea. Negative: Abdominal Pain Positive: Other - POSITIVE: BACK PAIN Neurological: Other - POSITIVE: Dizziness, difficulty with balance Positive: Weakness. Negative: Numbness All Other Systems Reviewed And Are Negative: Yes Physical Exam - Summary Physical Exam Summary: Appearance: Well appearing, no pain distress Skin: warm, dry, reflects adequate perfusion Head/face: normal Eyes: EOMI, MARISSA ENT: normal Neck: supple, non-tender Respiratory: CTA, breath sounds present Cardiovascular: RRR, pulses symmetrical Abdomen: non-tender, soft Musculoskeletal: normal, strength/ROM intact Neuro: normal, sensory motor intact, A&Ox3 GCS: 15 Triage Information Reviewed: Yes Vital Signs On Initial Exam: Initial Vitals Temp Pulse Resp BP Pulse Ox 97.7 F 110 16 176/123 96 01/24/18 13:13 01/24/18 13:13 01/24/18 13:13 01/24/18 13:13 01/24/18 13:13 Vital Signs Reviewed: Yes - [place] Coma Scale Best Eye Response: 4 - Spontaneous Best Motor Response: 6 - Obeys Commands Best Verbal Response: 5 - Oriented Coma Scale Total: 15 Diagnostics - Vital Signs Vital Signs Temp Pulse Resp BP Pulse Ox 01/24/18 13:13 97.7 F 110 16 176/123 96 - Laboratory Result Diagrams: 01/24/18 14:08 01/24/18 14:08 Lab Statement: Any lab studies that have been ordered have been reviewed, and results considered in the medical decision making process. - Radiology CXR Radiology Interpretation Completed By: Radiologist Summary of Radiographic Findings: NO ACTIVE CARDIOPULMONARY DISEASE. ED PHYSICIAN REVIEWED THIS RADIOLOGY REPORT. - CT BRAIN CT CT Interpretation Completed By: Radiologist Summary of CT Findings: NO ACUTE INTRACRANIAL PATHOLOGY. ED PHYSICIAN REVIEWED THIS RADIOLOGY REPORT. CTA CHEST/ABDOMEN/PELVIS CT Interpretation Completed By: Radiologist Summary of CT Findings: No evidence of aneurysmal dilatation of the thoracic aorta. No evidence of aortic dissection. Small thyroid nodules are noted. The remainder of the chest abdomen and pelvis is otherwise unremarkable. ED PHYSICIAN REVIEWED THIS RADIOLOGY REPORT. - EKG 1352 Cardiac Rate: Tachycardia - 105 BPM EKG Rhythm: Sinus Tachycardia - 105 BPM Summary of EKG Findings: NO ACUTE CHANGES Re-Evaluation - Re-Evaluation First Eval Re-Evaluation Time: 16:09 Change: Unchanged Comment: PATIENT'S BLOOD PRESSURE IS STILL HIGH. Course/Dx - Course Course Of Treatment: A 52 y/o female presents to the ED c/o dizziness. In the ED room, the patient has a pulse of 102 BPM, O2 saturation of 97%, and blood pressure of 185/120. Currently, the patient is still experiencing dizziness reaching 5/10 in severity. According to the patient, she woke up this AM really dizzy. She stated that she tried to work through it but it kept becoming worse. She stated that she felt like the room was spinning and also had nausea. She also experiences pain between her shoulder blades and weakness. She denied any SOB and CP, but stated that it is not a pain, but more of a chest pressure that is radiating to her back. She has a hard time keeping her balance and has almost fallen a few times. She denies any abdominal pain or numbness. She stated when she moves her body or head in general she feels dizzy. Patient also feels hot and flushed. Patient does take BP medications and did take her dosage earlier today. No ETOH or smoking. Last stress test (has had multiple) about a year ago with Dr. Clark. Physical examination was unremarkable. A CXR revealed no active cardiopulmonary disease. A Brain CT revealed no acute intracranial pathology. A CTA Chest/Abdomen/Pelvis revealed no evidence of aneurysmal dilatation of the thoracic aorta. No evidence of aortic dissection. Small thyroid nodules are noted. The remainder of the chest abdomen and pelvis is otherwise unremarkable. An EKG revealed tachycardia at a rate of 105 BPM. Hematology and Chemistry screens were done. No significant laboratory abnormalities were found. In the ED course, the patient received Catapres, Apresoline, and Iohexol. Patient will be discharged with a diagnosis of dizziness and HTN. Patient will be sent home with a prescription for Prinivil. Patient is to take medication as prescribed. Patient is to follow up with primary care provider in 2-3 days. Patient is to return to ED for any new or worsening symptoms. Patient is agreeable with this plan. - Differential Dx Differential Diagnoses Neuro: Positive: Headache - dizziness, Hypertension - Diagnoses Provider Diagnoses: HTN (hypertension), Dizziness Discharge - Sign-Out/Discharge Documenting (check all that apply): Patient Departure - DISCHARGE - Discharge Plan Condition: Stable Disposition: HOME Prescriptions: Lisinopril TAB* [Prinivil TAB 10 MG*] 10 mg PO DAILY #30 tab Patient Education Materials: Chronic Hypertension (ED), Dizziness (ED) Referrals: Deepti Jenkins MD [Primary Care Provider] - 3 Days Additional Instructions: FOLLOW UP WITH PRIMARY CARE PROVIDER IN 2-3 DAYS. TAKE MEDICATIONS PRESCRIBED. RETURN TO ED FOR ANY NEW OR WORSENING SYMPTOMS. - Billing Disposition and Condition Condition: STABLE Disposition: Home - Attestation Statements Document Initiated by Zakia: Yes Documenting Scribe: Pablo Gutierrez Provider For Whom Zakia is Documenting (Include Credential): Valentin Morgan MD Scribe Attestation: Pablo Ramos scribed for Valentin Morgan MD on 01/24/18 at 1702. Scribe Documentation Reviewed: Yes Provider Attestation: The documentation as recorded by the Pablo marcus accurately reflects the service I personally performed and the decisions made by Valentin farias MD Status of Scribe Document: Viewed
[2018-01-24 14:18] LABS: ABS Basophils 0.1 10^3/ul (0-0.2); ABS Eosinophils 0.1 10^3/ul (0-0.6); ABS Lymphocytes 2.4 10^3/ul (1.0-4.8); ABS Monocytes 0.6 10^3/ul (0-0.8); ABS Neutrophils 6.9 10^3/ul (1.5-7.7); ABS Nucleated RBC 0 10^3/ul; Eosinophil % 0.9 %; Hematocrit 47 % (35-47); Mean Corpuscular HGB Conc 34 g/dl (31-36); Mean Corpuscular Hemoglobin 31 pg (27-31); Mean Corpuscular Volume 91 fL (80-97); Mean Platelet Volume 7.9 fL (7.4-10.4); Nucleated Red Blood Cells % 0.1; Platelet Count 208 10^3/ul (150-450); Red Blood Count 5.11 10^6/ul (4.00-5.40); Red Cell Distribution Width 14 % (10.5-15); White Blood Count 10.1 10^3/ul (3.5-10.8)
[2018-01-24 14:33] LABS: Activated Partial Thrombo Time 33.1 seconds (26.0-36.3); INR 0.91 (0.77-1.02)
[2018-01-24 14:36] LABS: Albumin 4.2 g/dL (3.2-5.2); Albumin/Globulin Ratio 1.6 (1-3); BUN/Creatinine Ratio 20.8 (8-20); Calcium 9.6 mg/dL (8.6-10.3); EGFR Non-African American 134.8 (>60); Globulin 2.7 g/dL (2-4); Potassium 3.9 mmol/L (3.5-5.0); Total Bilirubin 0.5 mg/dL (0.2-1.0); Total Protein 6.9 g/dL (6.4-8.9)
[2018-01-24] MEDS ORDERED: Iohexol 350* (CONTRAST) 500 ML MDV IV ONE (14:44)
[2018-01-24] MEDS ORDERED: cloNIDine TAB* 0.1 MG PO ONE (16:22)
[2018-01-24 17:03] VITALS: BP 158/92
== END 2018-01-24 17:12 | disposition home or self-care (01) ==
LOC: ED 13:07
DX: I10 Essential (primary) hypertension (principal); R42 Dizziness and giddiness; E04.1 Nontoxic single thyroid nodule; Z87.891 Personal history of nicotine dependence; I25.10 Atherosclerotic heart disease of native coronary artery without angina pectoris; R00.0 Tachycardia, unspecified
CPT/HCPCS: 36415; 70450; 71045; 71275; 74174; 80053; 83605; 84484; 85025; 85610; 85730; 93005; 96374; 96375; 99283; A9270-GY; J0360; Q9967

== ENCOUNTER 2018-01-26 18:05 | Emergency (ER) | payer OTHER ==
[2018-01-26] MEDS ORDERED: NS 0.9% 1000 ML* 2,000 ML IV ONE (18:40)
[2018-01-26] MEDS ORDERED: Ondansetron INJ* 2 MG/ML VIAL IV ONE (18:47)
[2018-01-26] MEDS ORDERED: Ketorolac INJ* 30 MG/ML 1 ML VIAL IV PUSH ONE (18:47)
--- NOTE | 2018-01-26 19:06 | ED ---
Headache - HPI Summary HPI Summary: This patient is a 52 year old female presenting to [facility] with a chief complaint of headache for 2 days. Patient was seen for the same symptoms 2 days ago and was given a prescription for Lisinopril. Today, patient presents as she still just doesnt feel right. Pt sates she didn't know if she was supposed to add the lisinopril, or DC her amlodipine and replace it with lisinopril. Patient states her headache has persisted and her face is very flushed. Patient denies pain and rates it 0/10. Symptoms aggravated by nothing. Symptoms alleviated by nothing. Patient also notes a rash on her neck and right shoulder. Patient additionally reports nausea, weakness, feeling shaky. Patient denies chest pain , vomiting. Patient additionally complains that her vitals have been erratic, noting a pulse of 100-115 and a BP at home of above 130/90 and below 100/70. Vital signs while in room: HR 102 bpm, BP 144/97. Home Medications Medication Instructions Recorded Confirmed Type Lisinopril TAB* [Prinivil TAB 10 10 mg PO DAILY #30 tab 01/24/18 01/26/18 Rx MG*] - History Of Current Complaint Chief Complaint: EDHeadache Stated Complaint: HEADACHE/FLUSH FEELING/GENERAL Time Seen by Provider: 01/26/18 18:31 Hx Obtained From: Patient, Medical Records - 2 days ago [facility] ED report Hx Last Menstrual Period: years ago Onset/Duration: Gradual Onset, Started days ago, Still Present Currently Pain Is: Current Pain Scale(0-10)= - 0 Timing: Constant Character: Unable To Describe Location of Headache: Diffuse Radiates to: nowhere Aggravating Factor: Nothing Allevating Factors: Nothing Associated Signs And Symptoms: Negative - chest pain, vomiting, Other (Noted In Comments) - reports nausea, weakness, feeling shaky - Allergies/Home Medications Allergies/Adverse Reactions: Allergies Allergy/AdvReac Type Severity Reaction Status Date / Time acetaminophen Allergy Vomiting Verified 01/26/18 18:08 cephalexin [From Keflex] Allergy Vomiting Verified 01/26/18 18:08 codeine Allergy Vomiting Verified 01/26/18 18:08 hydrocodone Allergy Vomiting Verified 01/26/18 18:08 oxycodone Allergy Vomiting Verified 01/26/18 18:08 PAIN MEDS AdvReac Intermediate Vomiting Uncoded 01/24/18 13:16 PMH/Surg Hx/FS Hx/Imm Hx Previously Healthy: No Endocrine/Hematology History: Denies: Hx Anticoagulant Therapy, Hx Bone Marrow Disease, Hx Diabetes, Hx Sickle Cell Disease, Hx Thyroid Disease, Hx Anemia Cardiovascular History: Reports: Hx Angina, Hx Coronary Artery Disease, Hx Hypertension - on medications Denies: Hx Cardiomegaly, Hx Congestive Heart Failure, Hx Pacemaker/ICD, Hx Peripheral Vascular Disease, Hx Rheumatic Fever, Hx Valvular Heart Disease, Other Cardiovascular Problems/Disorders Respiratory History: Denies: Hx Asthma, Hx Chronic Obstructive Pulmonary Disease (COPD), Hx Pulmonary Edema, Hx Pulmonary Embolism, Hx Sleep Apnea, Other Respiratory Problems/Disorders GI History: Denies: Hx Cirrhosis, Hx Crohn's Disease, Hx Gastroesophageal Reflux Disease , Hx Hiatal Hernia, Hx Irritable Bowel, Hx Jaundice, Hx Ulcer, Other GI Disorders History: Reports: Other Problems/Disorders - Pain from uterine fibroids Denies: Hx Kidney Infection, Hx Kidney Stones Musculoskeletal History: Reports: Other Musculoskeletal History - DDD Denies: Hx Arthritis, Hx Bursitis, Hx Tendonitis Sensory History: Reports: Hx Contacts or Glasses Denies: Hx Cataracts, Hx Glaucoma, Hx Hearing Aid Opthamlomology History: Reports: Hx Contacts or Glasses Denies: Hx Cataracts, Hx Glaucoma Neurological History: Denies: Hx Headaches, Hx Migraine, Hx Seizures, Other Neuro Impairments/ Disorders Psychiatric History: Reports: Hx Depression - diag. with depression. treatment Lexapro Denies: Hx Anxiety, Hx Panic Disorder - Cancer History Hx Chemotherapy: No Hx Radiation Therapy: No - Surgical History Surgery Procedure, Year, and Place: partial HYSTERECTOMY 03/19/12; TUBAL LIGATION. HERNIA REPAIR Hx Anesthesia Reactions: Yes - extremely cold after anesthesia - Immunization History Date of Tetanus Vaccine: UNK Date of Influenza Vaccine: None this year Infectious Disease History: No Infectious Disease History: Denies: Hx Clostridium Difficile, Hx Hepatitis, Hx Human Immunodeficiency Virus (HIV), Hx of Known/Suspected MRSA, Hx Shingles, Hx Tuberculosis, Hx Known/ Suspected VRE, Hx Known/Suspected VRSA, History Other Infectious Disease, Traveled Outside the [place] in Last 30 Days - Family History Known Family History: Positive: Cardiac Disease, Other - CVA - father's side - Social History Occupation: Works From/At Home Alcohol Use: Occasionally Hx Substance Use: No Substance Use Type: Reports: None Hx Tobacco Use: Yes Smoking Status (MU): Former Smoker Type: Cigarettes Amount Used/How Often: 1/2 ppd Have You Smoked in the Last Year: Yes Review of Systems Negative: Fever Negative: Chest Pain Positive: Nausea. Negative: Vomiting Positive: no symptoms reported Musculoskeletal: Negative Neurological: Other - shakey Positive: Headache, Weakness - generalized Psychological: Normal All Other Systems Reviewed And Are Negative: Yes Physical Exam - Summary Physical Exam Summary: Appearance: Well-appearing, moderate pain distress, well-nourished Skin: Warm, color reflects adequate perfusion, dry, macular erythematous rash bilat neck lateral aspect, face "flushed" Head: Normal Head/Face inspection, atraumatic Eyes: Conjunctiva clear., PERRL, EOMI, no nystagmus ENT: Normal inspection, nl pharynx Neck: Supple, no nodes, no JVD, rash as above Respiratory: Lungs clear, normal breath sounds, no respiratory distress Cardio: RRR, No murmur, pulses normal, brisk capillary refill Abdomen: Soft, nontender Bowel sounds: Present Musculoskeletal: Strength Intact/ROM intact, no calf tenderness, no edema. Psychological: Normal Neuro: Alert, muscle tone normal, no focal deficit Triage Information Reviewed: Yes Vital Signs On Initial Exam: Initial Vitals Temp Pulse Resp BP Pulse Ox 96.8 F 118 15 137/92 99 01/26/18 18:09 01/26/18 18:09 01/26/18 18:09 01/26/18 18:09 01/26/18 18:09 Vital Signs Reviewed: Yes Diagnostics - Vital Signs Vital Signs Temp Pulse Resp BP Pulse Ox 01/26/18 18:39 12 01/26/18 18:36 144/97 01/26/18 18:09 96.8 F 118 15 137/92 99 - Laboratory Result Diagrams: 01/26/18 19:38 01/26/18 19:38 Lab Statement: Any lab studies that have been ordered have been reviewed, and results considered in the medical decision making process. - EKG 185 Cardiac Rate: NL EKG Rhythm: Sinus Rhythm - [address] Segment: Non-Specific Ectopy: None EKG Comparison: No Significant Change - since previous EKG at 01/24/2018 Summary of EKG Findings: An EKG, taken 1849, reveals NSR (96 BPM), normal [place] CT, normal QTc, normal axis, no acute changes Re-Evaluation - Re-Evaluation First Eval Re-Evaluation Time: 20:50 Comment: Vital signs while in room: HR 91 bpm, BP 110/80. Patient states that her headache is gone and that she feels much better after toradol IV, zofran IV and IV fluids. Headache Course/Dx - Course Course Of Treatment: This patient is a 52 year old female presenting to [facility] with a chief complaint of headache since 2 days ago. Patient was seen for the same symptoms 2 days ago and was given a prescription for Lisinopril. Pt was unsure whether to add the lisinopril to her amlodipine, or replace the amlodipine with the lisinopril. Today, patient presents as she still just doesnt feel right. An EKG, taken 1850, reveals NSR (96 BPM), normal [place] CT, normal QTc, normal axis, no acute changes. Bloodwork Obtained. Troponin is zero and other labwork is normal. A CXR was not repeated as it was just done 2 days agao. Urinalysis Obtained and is normal. Allergies noted. In the ED course the patient was given NS 0.9% bolus IV x 1 liter with improvement, Toradol 30mg IV, Zofran 4mg IV with relief of her headache and nausea. Pt's BP remained controlled throughout the ED visit. Patient will be discharged with a dx of cephalgia. Patient is advised to follow up with Dr. Jenkins (PCP) in 2 days. The patient is agreeable with this plan. - Diagnoses Differential Diagnosis/HQI/PQRI: CVA, TIA, Subdural Hematoma, Meningitis, Migraine, Sinus Headache, Tension Headache, Viral Syndrome Provider Diagnoses: Cephalgia, Hypertension, poor control Discharge - Sign-Out/Discharge Documenting (check all that apply): Patient Departure - Discharge Plan Condition: Stable Disposition: HOME Patient Education Materials: Acute Headache (ED), Hypertension (ED) Referrals: Deepti Jenkins MD [Primary Care Provider] - 2 Days Additional Instructions: You may continue the lisinopril as directed, and also continue the norvasc as directed. You may resume both of these medications beginning in the morning. Your tests did not show any serious abnormalities tonight. You were given toradol (ketorolac) 30mg IV for pain, and zofran 4mg IV for nausea, and IV fluids with resolution of your symptoms. Return to the ER if you have new or worsening symptoms. - Billing Disposition and Condition Condition: STABLE Disposition: Home - Attestation Statements Document Initiated by Zakia: Yes Documenting Scribe: Barry Marsh Provider For Whom Zakia is Documenting (Include Credential): Martha Madden MD Scribe Attestation: Barry Raoms scribed for Martha Madden MD on 01/29/18 at 1951. Scribe Documentation Reviewed: Yes Provider Attestation: The documentation as recorded by the Barry marcus accurately reflects the service I personally performed and the decisions made by me, Martha Madden MD Status of Scribe Document: Viewed
[2018-01-26 19:49] LABS: ABS Basophils 0 10^3/ul (0-0.2); ABS Eosinophils 0.1 10^3/ul (0-0.6); ABS Lymphocytes 2.7 10^3/ul (1.0-4.8); ABS Monocytes 0.6 10^3/ul (0-0.8); ABS Neutrophils 6.1 10^3/ul (1.5-7.7); ABS Nucleated RBC 0 10^3/ul; Eosinophil % 1.1 %; Hematocrit 46 % (35-47); Hemoglobin 15.3 g/dl (12.0-16.0); Lymphocyte % 27.9 %; Mean Corpuscular HGB Conc 34 g/dl (31-36); Mean Corpuscular Hemoglobin 31 pg (27-31); Mean Corpuscular Volume 92 fL (80-97); Mean Platelet Volume 7.8 fL (7.4-10.4); Nucleated Red Blood Cells % 0.1; Platelet Count 230 10^3/ul (150-450); Red Blood Count 4.97 10^6/ul (4.00-5.40); Red Cell Distribution Width 14 % (10.5-15); White Blood Count 9.5 10^3/ul (3.5-10.8)
[2018-01-26 19:57] LABS: INR 0.96 (0.77-1.02)
[2018-01-26 20:06] LABS: Albumin 4.1 g/dL (3.2-5.2); Albumin/Globulin Ratio 1.8 (1-3); Calcium 9.3 mg/dL (8.6-10.3); EGFR Non-African American 112.8 (>60); Globulin 2.3 g/dL (2-4); Potassium 3.7 mmol/L (3.5-5.0); Total Bilirubin 0.3 mg/dL (0.2-1.0); Total Protein 6.4 g/dL (6.4-8.9)
[2018-01-26 20:26] LABS: TSH (Thyroid Stimulating Horm) 1.1 mcIU/mL (0.34-5.60)
[2018-01-26 20:57] LABS: Urine Appearance Cloudy; Urine Bilirubin Negative (Negative); Urine Blood Negative (Negative); Urine Color Yellow; Urine Glucose Negative (Negative); Urine Ketones Trace (Negative); Urine Nitrite Negative (Negative); Urine Protein Negative (Negative); Urine Specific Gravity 1.024 (1.010-1.030); Urine Urobilinogen Positive (Negative)
[2018-01-26 21:15] VITALS: BP 125/72
== END 2018-01-26 21:15 | disposition home or self-care (01) ==
LOC: ED 18:05
DX: R51 Headache (principal); Z88.6 Allergy status to analgesic agent; R53.1 Weakness; Z87.891 Personal history of nicotine dependence; M54.2 Cervicalgia; I10 Essential (primary) hypertension
CPT/HCPCS: 36415; 80053; 81003; 82550; 82553; 83605; 83880; 84436; 84443; 84484; 85025; 85610; 85730; 93005; 96361; 96374; 96375; 99284; J1885; J2405

== ENCOUNTER 2018-09-02 13:04 | Emergency (ER) | payer OTHER ==
[2018-09-02 13:27] VITALS: BP 190/109
--- NOTE | 2018-09-02 14:06 | UC ---
Skin Complaint HPI - HPI Summary HPI Summary: 52 year old female presents with c/o itching over neck, chest, face,and L upper arm since . Patient was swimming at [facility] and attended an outdoor BBQ that night, no exposure to plants per her knowledge. no one else with symtpoms. + itching, redness, relieved by benadryl but itch/ redness returns once benadryl wears off. - History of Current Complaint Chief Complaint: UCSkin Time Seen by Provider: 09/02/18 13:50 Stated Complaint: BITES ALL OVER. Hx Obtained From: Patient Hx Last Menstrual Period: years ago ?: No Onset/Duration: Sudden Onset, Lasting Days - since Skin Exposure Onset/Duration: Days Ago Timing: Constant Onset Severity: Moderate Current Severity: Moderate Pain Intensity: 0 Pain Scale Used: 0-10 Numeric Location: Diffuse Character: Hives, Redness, Raised Aggravating Factor(s): Nothing - Allergy/Home Medications Allergies/Adverse Reactions: Allergies Allergy/AdvReac Type Severity Reaction Status Date / Time acetaminophen Allergy Vomiting Verified 09/02/18 13:28 cephalexin [From Keflex] Allergy Vomiting Verified 09/02/18 13:28 codeine Allergy Vomiting Verified 09/02/18 13:28 hydrocodone Allergy Vomiting Verified 09/02/18 13:28 oxycodone Allergy Vomiting Verified 09/02/18 13:28 PAIN MEDS AdvReac Intermediate Vomiting Uncoded 09/02/18 13:28 Home Medications: Home Medications amLODIPine TAB* [Norvasc 5 mg TAB*] 10 mg PO DAILY 09/02/18 [History Confirmed 09/02/18] PMH/Surg Hx/FS Hx/Imm Hx Previously Healthy: Yes Other History Of: Negative For: Anticoagulant Therapy - Surgical History Surgical History: Yes Surgery Procedure, Year, and Place: partial HYSTERECTOMY 03/19/12; TUBAL LIGATION. HERNIA REPAIR - Family History Known Family History: Positive: Cardiac Disease, Other - CVA - father's side, Non-Contributory - Social History Alcohol Use: Occasionally Substance Use Type: None Smoking Status (MU): Former Smoker Type: Cigarettes Amount Used/How Often: 1/2 ppd Have You Smoked in the Last Year: Yes Household Exposure Type: Cigarettes Review of Systems All Other Systems Reviewed And Are Negative: Yes Constitutional: Positive: Negative Skin: Positive: Rash Neurological: Negative: Weakness, Paresthesia Is Patient Immunocompromised?: No Physical Exam Triage Information Reviewed: Yes Appearance: Well-Appearing, No Pain Distress, Well-Nourished Vital Signs: Initial Vital Signs Temp 97.8 F 09/02/18 13:25 Pulse 100 09/02/18 13:25 Resp 17 09/02/18 13:25 BP 190/109 09/02/18 13:25 Pulse Ox 100 09/02/18 13:25 Vital Signs Reviewed: Yes Eyes: Positive: Conjunctiva Clear Musculoskeletal Exam: Normal Neurological Exam: Normal Psychological Exam: Normal Skin: Positive: Other - raised erythemtous patches, + itching Course/Dx - Course Course Of Treatment: Contact Dermatitis - STeroid taper to decrease inflammation - Put antibacterial ointment over oepn/ scratched areas - Benadryl as needed for itching - Follow up with primary if no improvement within 1-2 days - Differential Diagnoses - Skin Complaint Differential Diagnoses: Drug Rash, Poison Ketty, Poison Honor, Urticaria - Diagnoses Provider Diagnosis: Contact dermatitis Discharge - Sign-Out/Discharge Documenting (check all that apply): Patient Departure All imaging exams completed and their final reports reviewed: No Studies - Discharge Plan Condition: Good Disposition: HOME Prescriptions: methylPREDNISolone [Medrol Dosepak 4 MG*] 1 james PO .SEE JAMES INSTRUCTION #1 packet Patient Education Materials: Contact Dermatitis (ED) Referrals: Deepti Jenkins MD [Primary Care Provider] - Additional Instructions: Contact Dermatitis - STeroid taper to decrease inflammation - Put antibacterial ointment over oepn/ scratched areas - Benadryl as needed for itching - Follow up with primary if no improvement within 1-2 days - Billing Disposition and Condition Condition: GOOD Disposition: Home - Attestation Statements Provider Attestation: Per institutional requirements, I have reviewed the chart, however, I was not consulted specifically or made aware of this patient by the midlevel provider. I did not personally evaluate, interact with , or disposition this patient.
== END 2018-09-02 14:19 | disposition home or self-care (01) ==
LOC: UCEAST 13:04
DX: L25.9 Unspecified contact dermatitis, unspecified cause (principal); Z87.891 Personal history of nicotine dependence; Z88.5 Allergy status to narcotic agent
CPT/HCPCS: 99212; G0463

== ENCOUNTER 2018-11-16 11:26 | Emergency (ER) | payer OTHER ==
[2018-11-16] MEDS ORDERED: Ketorolac *IM* INJ* 60 MG/2 ML VIAL IM ONE (11:49)
[2018-11-16 12:37] LABS: ABS Basophils 0.1 10^3/ul (0-0.2); ABS Eosinophils 0.2 10^3/ul (0-0.6); ABS Lymphocytes 2.8 10^3/ul (1.0-4.8); ABS Monocytes 0.7 10^3/ul (0-0.8); ABS Neutrophils 6.3 10^3/ul (1.5-7.7); Eosinophil % 1.6 %; Hematocrit 47 % (35-47); Hemoglobin 15.9 g/dL (12.0-16.0); Lymphocyte % 27.6 %; Mean Corpuscular HGB Conc 34 g/dL (31-36); Mean Corpuscular Hemoglobin 32 pg (27-31); Mean Corpuscular Volume 94 fL (80-97); Mean Platelet Volume 7.8 fL (7.4-10.4); Nucleated Red Blood Cells % 0.1; Platelet Count 227 10^3/uL (150-450); Red Blood Count 4.93 10^6 /uL (3.70-4.87); Red Cell Distribution Width 14 % (10-15)
[2018-11-16 13:03] LABS: ALT 15 U/L (7-52); Albumin/Globulin Ratio 1.7 (1-3); Alkaline Phosphatase 105 U/L (34-104); BUN/Creatinine Ratio 15.7 (8-20); Blood Urea Nitrogen 8 mg/dL (6-24); C Reactive Protein 5.42 mg/L (<8.01); CO2 Carbon Dioxide 28 mmol/L (22-32); Calcium 9.2 mg/dL (8.6-10.3); Chloride 103 mmol/L (101-111); EGFR African American 151.5 (>60); EGFR Non-African American 125.2 (>60); Globulin 2.4 g/dL (2-4); Glucose 93 mg/dL (70-100); Sodium 137 mmol/L (135-145); Total Protein 6.4 g/dL (6.4-8.9)
[2018-11-16 13:12] LABS: Anion Gap 6 mmol/L (2-11)
[2018-11-16 13:35] VITALS: BP 158/104
--- NOTE | 2018-11-20 07:41 | ED ---
HPI Cardiac - HPI Summary HPI Summary: This patient is a 53-year-old otherwise healthy female smoker presenting to the ED with a right sided pain to the right axilla and right chest wall. She states symptoms are worse with taking a deep breath, better with rest. Worse with palpation to the area. She has not tried any ibuprofen, heat or ice to the area. She states she takes no medications Pt is a smoker, but denies OCP use, known malignancy, recent travel or calf pain. No hx of HTN or chest pain. 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 Pain is currently rated 5/10 constant and worse with palpation. Denies SOB. Denies other sxs. - History of Current Complaint Chief Complaint: EDChestWallPain Stated Complaint: POSS PULLED MUSCLE ON RT SIDE PER PT Time Seen by Provider: 11/16/18 11:42 Hx Obtained From: Patient Hx Last Menstrual Period: years ago Onset/Duration: Started Hours Ago Timing: Constant Initial Severity: Moderate Current Severity: Moderate Pain Intensity: 5 Pain Scale Used: 0-10 Numeric Chest Pain Location: Right Lateral Chest Pain Radiates: Yes Chest Pain Radiates To:: Shoulder - scapula area Character: Other: - tight Aggravating Factor(s): Position Alleviating Factor(s): Position - Risk Factors Pulmonary Embolism Risk Factors: Smoking Cardiac Risk Factors: Smoking TAD Risk Factors: Smoking AMI/ACS Risk Factors: Smoking - Allergy/Home Medications Allergies/Adverse Reactions: Allergies Allergy/AdvReac Type Severity Reaction Status Date / Time cephalexin [From Keflex] Allergy Vomiting Verified 11/16/18 11:40 codeine Allergy Vomiting Verified 11/16/18 11:40 hydrocodone Allergy Vomiting Verified 11/16/18 11:40 oxycodone Allergy Vomiting Verified 11/16/18 11:40 PMH/Surg Hx/FS Hx/Imm Hx Previously Healthy: Yes Endocrine/Hematology History: Denies: Hx Anticoagulant Therapy, Hx Bone Marrow Disease, Hx Diabetes, Hx Sickle Cell Disease, Hx Thyroid Disease, Hx Anemia Cardiovascular History: Reports: Hx Angina, Hx Coronary Artery Disease, Hx Hypertension - on medications Denies: Hx Cardiomegaly, Hx Congestive Heart Failure, Hx Pacemaker/ICD, Hx Peripheral Vascular Disease, Hx Rheumatic Fever, Hx Valvular Heart Disease, Other Cardiovascular Problems/Disorders Respiratory History: Denies: Hx Asthma, Hx Chronic Obstructive Pulmonary Disease (COPD), Hx Pulmonary Edema, Hx Pulmonary Embolism, Hx Sleep Apnea, Other Respiratory Problems/Disorders GI History: Denies: Hx Cirrhosis, Hx Crohn's Disease, Hx Gastroesophageal Reflux Disease , Hx Hiatal Hernia, Hx Irritable Bowel, Hx Jaundice, Hx Ulcer, Other GI Disorders History: Reports: Other Problems/Disorders - Pain from uterine fibroids Denies: Hx Kidney Infection, Hx Kidney Stones Musculoskeletal History: Reports: Other Musculoskeletal History - DDD Denies: Hx Arthritis, Hx Bursitis, Hx Tendonitis Sensory History: Reports: Hx Contacts or Glasses Denies: Hx Cataracts, Hx Glaucoma, Hx Hearing Aid Opthamlomology History: Reports: Hx Contacts or Glasses Denies: Hx Cataracts, Hx Glaucoma Neurological History: Denies: Hx Headaches, Hx Migraine, Hx Seizures, Other Neuro Impairments/ Disorders Psychiatric History: Reports: Hx Depression - diag. with depression. treatment Lexapro Denies: Hx Anxiety, Hx Panic Disorder - Cancer History Hx Chemotherapy: No Hx Radiation Therapy: No - Surgical History Surgery Procedure, Year, and Place: partial HYSTERECTOMY 03/19/12; TUBAL LIGATION. HERNIA REPAIR Hx Anesthesia Reactions: Yes - extremely cold after anesthesia - Immunization History Date of Tetanus Vaccine: UNK Date of Influenza Vaccine: None this year Hx Pertussis Vaccination: No Immunizations Up to Date: Yes Infectious Disease History: No Infectious Disease History: Denies: Hx Clostridium Difficile, Hx Hepatitis, Hx Human Immunodeficiency Virus (HIV), Hx of Known/Suspected MRSA, Hx Shingles, Hx Tuberculosis, Hx Known/ Suspected VRE, Hx Known/Suspected VRSA, History Other Infectious Disease, Traveled Outside the [place] in Last 30 Days - Family History Known Family History: Positive: Cardiac Disease, Other - CVA - father's side, Non-Contributory - Social History Occupation: Employed Full-time Lives: With Family Alcohol Use: Weekly Hx Substance Use: No Substance Use Type: Reports: None Hx Tobacco Use: Yes Smoking Status (MU): Light Every Day Tobacco Smoker Type: Cigarettes Amount Used/How Often: 1/2 ppd Have You Smoked in the Last Year: Yes Review of Systems Negative: Fever, Chills, Fatigue, Skin Diaphoresis Positive: Chest Pain. Negative: Palpitations Negative: Shortness Of Breath, Cough Genitourinary: Negative Positive: no symptoms reported, see HPI Negative: Arthralgia, Myalgia Negative: Rash, Bruising Neurological: Negative All Other Systems Reviewed And Are Negative: Yes Physical Exam Triage Information Reviewed: Yes Vital Signs On Initial Exam: Initial Vitals Temp Pulse Resp BP Pulse Ox 97.2 F 94 16 189/118 99 11/16/18 11:36 11/16/18 11:36 11/16/18 11:36 11/16/18 11:36 11/16/18 11:36 Vital Signs Reviewed: Yes Appearance: Positive: Well-Appearing, Well-Nourished Skin: Positive: Warm, Skin Color Reflects Adequate Perfusion Head/Face: Positive: Normal Head/Face Inspection Eyes: Positive: EOMI, Conjunctiva Clear Neck: Positive: Nontender, No Lymphadenopathy Respiratory/Lung Sounds: Positive: Clear to Auscultation, Breath Sounds Present Cardiovascular: Positive: RRR, Pulses are Symmetrical in both Upper and Lower Extremities Musculoskeletal: Positive: Strength/ROM Intact, Pain @ - R axillary area, scapula and R lateral rib with palpation and deep breaths Neurological: Positive: Speech Normal Psychiatric: Positive: Normal, Affect/Mood Appropriate AVPU Assessment: Alert Procedures - Sedation Patient Received Moderate/Deep Sedation with Procedure: No Diagnostics - Vital Signs Vital Signs Temp Pulse Resp BP Pulse Ox 11/16/18 13:34 97.7 F 98 18 158/104 96 11/16/18 11:36 97.2 F 94 16 189/118 99 - Laboratory Lab Results: Lab Results 11/16/18 11/16/18 11/16/18 Range/Units 12:18 12:18 12:18 WBC 10.0 (3.5-10.8) 10^3/uL RBC 4.93 H (3.70-4.87) 10^6 /uL Hgb 15.9 (12.0-16.0) g/dL Hct 47 (35-47) % MCV 94 (80-97) fL MCH 32 H (27-31) pg MCHC 34 (31-36) g/dL RDW 14 (10-15) % Plt Count 227 (150-450) 10^3/uL MPV 7.8 (7.4-10.4) fL Neut % (Auto) 62.6 % Lymph % (Auto) 27.6 % [place] % (Auto) 6.8 % Eos % (Auto) 1.6 % Baso % (Auto) 1.4 % Absolute Neuts (auto) 6.3 (1.5-7.7) 10^3/ul Absolute Lymphs (auto) 2.8 (1.0-4.8) 10^3/ul Absolute Monos (auto) 0.7 (0-0.8) 10^3/ul Absolute Eos (auto) 0.2 (0-0.6) 10^3/ul Absolute Basos (auto) 0.1 (0-0.2) 10^3/ul Absolute Nucleated RBC 0.0 10^3/ul Nucleated RBC % 0.1 D-Dimer, Quantitative < 200 (Less Than 230) ng/mL Sodium 137 (135-145) mmol/L Potassium TNP Chloride 103 (101-111) mmol/L Carbon Dioxide 28 (22-32) mmol/L Anion Gap 6 (2-11) mmol/L BUN 8 (6-24) mg/dL Creatinine 0.51 (0.51-0.95) mg/dL Est GFR ( Amer) 151.5 (>60) Est GFR (Non-Af Amer) 125.2 (>60) BUN/Creatinine Ratio 15.7 (8-20) Glucose 93 (70-100) mg/dL Calcium 9.2 (8.6-10.3) mg/dL Total Bilirubin 0.60 (0.2-1.0) mg/dL AST TNP ALT 15 (7-52) U/L Alkaline Phosphatase 105 H (34-104) U/L C-Reactive Protein 5.42 (<8.01) mg/L Total Protein 6.4 (6.4-8.9) g/dL Albumin 4.0 (3.2-5.2) g/dL Globulin 2.4 (2-4) g/dL Albumin/Globulin Ratio 1.7 (1-3) Result Diagrams: 11/16/18 12:18 11/16/18 12:18 Lab Statement: Any lab studies that have been ordered have been reviewed, and results considered in the medical decision making process. Disposition - Course Course Of Treatment: Patient's evaluated for right sided rib and axillary tenderness, worse with palpation and deep breaths, better with rest. Symptoms have been present since this morning. She states she feels she may have pulled a muscle while cleaning houses yesterday. She has not used heat, ice, over-the- counter medications for relief. She denies any calf pain, recent travel. Patient is a smoker. Labs obtained are fairly unremarkable including a d-dimer < 200. On palpation, symptoms are rated a 9/10, at rest, symptoms are rated a 2 /10. Patient is able to flex and extend, abduct and adduct at the bilateral shoulders and elbows without discomfort. She does endorse some pain to the right scapular area and with scapular manipulation, symptoms worsen. Patient is given Toradol with some relief. She is given a prescription for this. PERC score low. No chest pain. Sxs most consistent with muscle strain although with pt smoking hx, cardiac was on differntial. Will f/u with PCP next week. - Differential Dx - Cardiopulmonary Differential Diagnoses - Cardiopulmonary: Other - PE, chest pain, chest tightness, atypical chest pain - Diagnoses Provider Diagnoses: Muscle strain Discharge ED - Sign-Out/Discharge Documenting (check all that apply): Patient Departure - Discharge Plan Condition: Stable Disposition: HOME Prescriptions: Ketorolac TAB * [Toradol TAB *] 10 mg PO Q6H #16 tab Patient Education Materials: Chest Wall Pain (ED) Referrals: Deepti Jenkins MD [Primary Care Provider] - Additional Instructions: Toradol up to four times daily Moist heat to the area Gentle stretches - Billing Disposition and Condition Condition: STABLE Disposition: Home
== END 2018-11-16 13:30 | disposition home or self-care (01) ==
LOC: ED 11:26
DX: R52 Pain, unspecified (principal); F17.210 Nicotine dependence, cigarettes, uncomplicated; I25.10 Atherosclerotic heart disease of native coronary artery without angina pectoris; I10 Essential (primary) hypertension; F32.9 Major depressive disorder, single episode, unspecified; Z90.710 Acquired absence of both cervix and uterus; Z98.51 Tubal ligation status; Z88.1 Allergy status to other antibiotic agents; Z88.5 Allergy status to narcotic agent; Z79.899 Other long term (current) drug therapy
CPT/HCPCS: 36415; 80053; 85025; 85379; 86140; 93005; 96372; 99282; J1885

== ENCOUNTER 2019-04-24 13:40 | Emergency (ER) | payer OTHER ==
--- NOTE | 2019-04-24 14:52 | UC ---
Respiratory Complaint HPI - HPI Summary HPI Summary: 53 yo female presents with URI symptoms. She tells me that for the last 5 days she has had sneezing, sinus pain/pressure/congestion, sob, fever, and cough. She has been self-quarantining at home and has no known exposures to COVID. She has been taking OTC tylenol cold and cough medicine with little relief. She does smoke daily. Denies sore throat, chest pain, abdominal pain, n/v/d, dysuria. Did not get a flu shot this year. No recent travel - History of Current Complaint Chief Complaint: UCRespiratory Stated Complaint: RESPIRATORY COMPLAINT,FEVER Time Seen by Provider: 04/24/19 14:41 Hx Obtained From: Patient Hx Last Menstrual Period: years ago Onset/Duration: Sudden Onset Severity Initially: Moderate Severity Currently: Moderate Pain Intensity: 7 Pain Scale Used: 0-10 Numeric - Allergies/Home Medications Allergies/Adverse Reactions: Allergies Allergy/AdvReac Type Severity Reaction Status Date / Time cephalexin [From Keflex] AdvReac Vomiting Verified 04/24/19 14:40 codeine AdvReac Vomiting Verified 04/24/19 14:40 hydrocodone AdvReac Vomiting Verified 04/24/19 14:40 oxycodone AdvReac Vomiting Verified 04/24/19 14:40 Home Medications: Home Medications amLODIPine TAB* [Norvasc 5 mg TAB*] 10 mg PO DAILY 09/02/18 [History Confirmed 04/24/19] Acetaminophen [Tylenol Extra Strength] 1,000 mg PO ONCE 04/24/19 [History Confirmed 04/24/19] Albuterol HFA INHALER* [Ventolin HFA Inhaler*] 1 puff INH Q6H PRN #1 mdi [Rx] Ibuprofen TAB* [Motrin TAB* 400 MG] 400 mg PO Q6H PRN 04/24/19 [History Confirmed 04/24/19] PMH/Surg Hx/FS Hx/Imm Hx Cardiovascular History: Hypertension Other History Of: Negative For: Anticoagulant Therapy - Surgical History Surgical History: Yes Surgery Procedure, Year, and Place: partial HYSTERECTOMY 03/19/12; TUBAL LIGATION. HERNIA REPAIR - Family History Known Family History: Positive: Cardiac Disease, Other - CVA - father's side - Social History Lives: With Family Alcohol Use: Occasionally Substance Use Type: None Smoking Status (MU): Light Every Day Tobacco Smoker Type: Cigarettes Amount Used/How Often: 1/2 ppd Have You Smoked in the Last Year: Yes Household Exposure Type: Cigarettes Review of Systems All Other Systems Reviewed And Are Negative: No Constitutional: Positive: Fever, Fatigue Skin: Positive: Negative Eyes: Positive: Negative ENT: Positive: Nasal Discharge Respiratory: Positive: Shortness Of Breath, Cough Cardiovascular: Positive: Negative Gastrointestinal: Positive: Negative Genitourinary: Positive: Negative Physical Exam - Summary Physical Exam Summary: GENERAL: NAD. WDWN. No pain distress. SKIN: No rashes, sores, lesions, or open wounds. HEENT: Head: AT/NC Eyes: Conjunctiva clear without inflammation or discharge. Ears: Hearing grossly normal. TMs intact, no bulging, erythema, or edema. Nose: Nasal mucosa pink and moist with yellow rhinnorrhea. TTP maxillary and frontal sinus. Throat: Posterior oropharynx without exudates, erythema, or tonsillar enlargement. Uvula midline. NECK: Supple. Nontender. No lymphadenopathy. CHEST: Moderate wheezing throughout. Rhonchi LLL. No accessory muscle use. Breathing comfortably and in no distress. CV: RRR. Pulses intact. Cap refill <2seconds NEURO: Alert. PSYCH: Age appropriate behavior. Triage Information Reviewed: Yes Vital Signs: Vital Signs: Temp Pulse Resp BP Pulse Ox 98.3 F 100 22 168/102 96 04/24/19 14:37 04/24/19 14:37 04/24/19 14:37 04/24/19 14:37 04/24/19 14:37 Laboratory Tests 04/24/19 15:06 Influenza A (Rapid) Positive H Vital Signs Reviewed: Yes Diagnostics - Radiology CXR Radiology Interpretation Completed By: Radiologist Summary of Radiographic Findings: IMPRESSION: No radiographic evidence of acute cardiopulmonary disease. Respiratory Course/Dx - Course Course Of Treatment: POC flu positive. CXR negative. In the clinic pt was given a duoneb treatment for her wheezing and SOB and good improvement. Recommended COVID testing despite flu positive given exam findings and pt's age. Exam performed utilizing CDC recommended PPE. You are being tested for COVID-19. You need to quarantine yourself in a bedroom and bathroom only you are using. You may not leave the house. [facility] will contact you and notify of results when they are available. Advised to be on home isolation until cleared by the health department. Go to ED for increased SOB or any difficulty breathing - new or worsening symptoms. - Differential Dx/Diagnosis Provider Diagnosis: Influenza, SOB (shortness of breath) Discharge ED - Sign-Out/Discharge Documenting (check all that apply): Patient Departure All imaging exams completed and their final reports reviewed: Yes - Discharge Plan Condition: Stable Disposition: HOME Prescriptions: Albuterol HFA INHALER* [Ventolin HFA Inhaler*] 1 puff INH Q6H PRN #1 mdi PRN Reason: Sob/Wheezing Forms: COVID-19 Tested & Isolation Referrals: Arnaldo Black MD [Primary Care Provider] - Additional Instructions: You are being tested for COVID-19. You need to quarantine yourself in a bedroom and bathroom only you are using. You may not leave the house. [facility] will contact you and notify of results when they are available. Advised to be on home isolation until cleared by the health department. Go to ED for increased SOB or any difficulty breathing - new or worsening symptoms. - Billing Disposition and Condition Condition: STABLE Disposition: Home - Attestation Statements Provider Attestation: This patient was not seen by me. I was available for consult. Chart reviewed. RUMA
[2019-04-24 15:04] VITALS: BP 168/102
[2019-04-24 15:10] LABS: Influenza A Molecular POSITIVE (Negative)
[2019-04-24] MEDS ORDERED: Albuterol/Ipratropium NEB.SOL* Albuterol 2.5 MG/Ipratropium 0.5 MG 3 ML INH ONE (15:17)
== END 2019-04-24 16:10 | disposition home or self-care (01) ==
LOC: UCEAST 13:40
DX: J10.1 Influenza due to other identified influenza virus with other respiratory manifestations (principal); R06.02 Shortness of breath; I10 Essential (primary) hypertension; Z79.899 Other long term (current) drug therapy; Z88.1 Allergy status to other antibiotic agents; Z88.5 Allergy status to narcotic agent; F17.210 Nicotine dependence, cigarettes, uncomplicated
CPT/HCPCS: 71046; 99212; A9270-GY; G0463; U0002

== ENCOUNTER 2021-01-16 18:22 | Inpatient (IN) ==
[2021-01-16 20:07] LABS: ABS Basophils 0.1 10^3/ul (0-0.2); ABS Eosinophils 0.2 10^3/ul (0-0.6); ABS Lymphocytes 2.1 10^3/ul (1.0-4.8); ABS Monocytes 0.6 10^3/ul (0-0.8); ABS Neutrophils 8.1 10^3/ul (1.5-7.7); Eosinophil % 2.1 %; Hematocrit 49 % (35-47); Hemoglobin 16.5 g/dL (12.0-16.0); Lymphocyte % 18.9 %; Mean Corpuscular HGB Conc 34 g/dL (31-36); Mean Corpuscular Hemoglobin 32 pg (27-31); Mean Corpuscular Volume 93 fL (80-97); Mean Platelet Volume 7.7 fL (7.4-10.4); Platelet Count 270 10^3/uL (150-450); Red Blood Count 5.25 10^6 /uL (3.70-4.87); Red Cell Distribution Width 14 % (10-15); White Blood Count 11.2 10^3/uL (3.5-10.8)
[2021-01-16 20:25] LABS: Urine Appearance Cloudy; Urine Bilirubin Negative (Negative); Urine Blood 1+ (Negative); Urine Color Yellow; Urine Glucose Negative (Negative); Urine Ketones Negative (Negative); Urine Nitrite Negative (Negative); Urine Protein Negative (Negative); Urine Specific Gravity 1.019 (1.002-1.030); Urine Urobilinogen Negative (Negative)
[2021-01-16 20:28] LABS: Urine Benzodiazepine Screen None Detected (None Detect); Urine Cannabinoids Screen None Detected (None Detect); Urine Opiates Screen None Detected (None Detect)
[2021-01-16 20:32] LABS: Urine Bacteria Absent (Absent); Urine Red Blood Cell 3+(>10/hpf) (Absent); Urine Squamous Epithelial Cell Present (Absent); Urine White Blood Cell 3+(>20/hpf) (Absent)
[2021-01-16 20:35] LABS: ALT 13 U/L (7-52); AST 15 U/L (13-39); Albumin/Globulin Ratio 1.4 (1-3); Alkaline Phosphatase 120 U/L (35-149); Anion Gap 4 mmol/L (2-11); Blood Urea Nitrogen 10 mg/dL (6-24); CO2 Carbon Dioxide 28 mmol/L (22-32); Calcium 9.6 mg/dL (8.6-10.3); Chloride 107 mmol/L (101-111); Globulin 2.8 g/dL (2-4); Glucose 123 mg/dL (70-100); Potassium 3.7 mmol/L (3.5-5.0); Sodium 139 mmol/L (135-145); Total Protein 6.8 g/dL (6.4-8.9); eGFR CKD-EPI 106.8 (>60)
[2021-01-16 20:59] LABS: Acetaminophen < 15 mcg/mL; Alcohol, S < 13 mg/dL (<13); Salicylate < 2.50 mg/dL (<30)
[2021-01-16 21:13] LABS: TSH Ultra Thyroid Stim Horm 0.62 mcIU/mL (0.34-5.60)
[2021-01-16] MEDS ORDERED: Ciproflox/Dexameth OTIC.SUSP 7.5 ML BTL LEFT EAR ONE (22:24)
[2021-01-16 22:50] LABS: Rapid COVID-19 Molecular Undetected (Undetected)
[2021-01-16] MEDS ORDERED: Nicotine GUM 2MG FRUIT FLAVOR PO PRN (23:00)
[2021-01-16] MEDS ORDERED: Al Hydrox/Mg Hydrox/Simet LIQ 30 ML UDC PO PRN (23:28)
[2021-01-17] MEDS: Nicotine PATCH 21 MG/24 HR PATCH TRANSDERM SCH (09:34)
[2021-01-17] MEDS: Vitamin THERAPEUTIC TAB PO SCH (09:34)
[2021-01-17] MEDS: Albuterol HFA INHALER 8 gm MDI INH PRN ×2 (10:33→17:29)
[2021-01-17] MEDS: Ciproflox/Dexameth OTIC.SUSP 7.5 ML BTL LEFT EAR SCH ×2 (10:35→19:10)
[2021-01-18] MEDS: Albuterol HFA INHALER 8 gm MDI INH PRN (10:27)
[2021-01-18] MEDS: Vitamin THERAPEUTIC TAB PO SCH (10:32)
[2021-01-18] MEDS: Nicotine PATCH 21 MG/24 HR PATCH TRANSDERM SCH (10:32)
[2021-01-18] MEDS: Ciproflox/Dexameth OTIC.SUSP 7.5 ML BTL LEFT EAR SCH ×2 (10:33→19:08)
[2021-01-19] MEDS: Albuterol HFA INHALER 8 gm MDI INH PRN (08:29)
[2021-01-19] MEDS: Vitamin THERAPEUTIC TAB PO SCH (09:18)
[2021-01-19] MEDS: Nicotine PATCH 21 MG/24 HR PATCH TRANSDERM SCH (09:18)
[2021-01-19] MEDS: Ciproflox/Dexameth OTIC.SUSP 7.5 ML BTL LEFT EAR SCH ×2 (09:18→21:21)
[2021-01-19] MEDS: CMCS: Ketorolac 10 mg TAB (NF) PO PRN ×2 (15:31→21:25)
[2021-01-20] MEDS: Nicotine PATCH 21 MG/24 HR PATCH TRANSDERM SCH (07:32)
[2021-01-20] MEDS: Vitamin THERAPEUTIC TAB PO SCH (07:33)
[2021-01-20] MEDS: CMCS: Ketorolac 10 mg TAB (NF) PO PRN (08:41)
[2021-01-20] MEDS: Albuterol HFA INHALER 8 gm MDI INH PRN (08:41)
[2021-01-20] MEDS: Ciproflox/Dexameth OTIC.SUSP 7.5 ML BTL LEFT EAR SCH (08:43)
[2021-01-20 08:46] VITALS: BP 117/77
== END 2021-01-20 12:00 | DRG 753 ==
LOC: ED 18:22 → BSU 21:58
PROVIDERS: ADMIT Psychiatry & Neurology Psychiatry; ATTEND Student in an Organized Health Care Education/Training Program